=== PATIENT | male | born 1990 | race Hispanic/Latino ===

== ENCOUNTER 2017-09-06 13:59 | Emergency (ER) | payer MEDICARE, MEDICAID | END 2017-09-06 18:07 | disposition left against medical advice (07) | LOC: ERS 13:59 | DX: Z53.21 Procedure and treatment not carried out due to patient leaving prior to being seen by health care provider (principal) ==

== ENCOUNTER 2021-06-09 07:59 | Inpatient (IN) | payer MEDICARE, MEDICAID ==
[2021-06-09] MEDS ORDERED: Lorazepam 2 MG/ML VIAL ONE ×2 (09:22→12:57)
[2021-06-09] MEDS ORDERED: Ondansetron PF 4 MG/2 ML Vial ONE (09:22)
[2021-06-09 10:02] LABS: Hemoglobin 13.2 g/dL (14.0-18.0); Mean Corpuscular HGB CONC 34.3 g/dL (32.0-36.0); Mean Corpuscular Hemoglobin 38.3 pg (27.0-31.0); Mean Platelet Volume 6.3 fL (7.4-10.4); Platelet Count 167 thou/uL (130-400); Red Blood Cell (RBC) Count 3.44 mill/uL (4.70-6.10); White Blood Cell (WBC) Count 13.5 thou/uL (4.8-10.8)
[2021-06-09 10:13] LABS: Acetaminophen Less than 6.0 mcg/mL (10.0-30.0); Alcohol 159 mg/dL (Less than 10); Salicylate Less than 8.0 mg/dL (15.0-30.0)
[2021-06-09 10:15] LABS: ALT (SGPT) 52 U/L (8-55); AST (SGOT) 173 U/L (5-34); Albumin 2.3 g/dL (3.5-5.0); Alkaline Phosphatase 210 U/L (40-110); Anion Gap 14 mmol/L (10-20); BUN (Urea Nitrogen) 4 mg/dL (8.9-20.6); Bilirubin, Total 5.1 mg/dL (0.2-1.2); Calc. Creatinine Clearance 0 mL/min (70-130); Calcium 7.9 mg/dL (7.8-10.44); Carbon Dioxide 31 mmol/L (22-29); Chloride 89 mmol/L (98-107); Glucose 108 mg/dL (70-105); Lipase 19 U/L (8-78); Protein, Total 7.3 g/dL (6.0-8.3); Sodium 131 mmol/L (136-145)
[2021-06-09 10:16] LABS: #Lymphocytes 2.5 thou/uL (1.20-3.40); %Basophils 0.2 % (0.0-1.0); %Eosinophils 0.3 % (0.0-10.0); %Lymphocytes 18.4 % (21.0-51.0); %Monocytes 7.6 % (0.0-10.0); %Neutrophils 73.5 % (42.0-75.0); MDiff Complete? YES; Macrocytosis SLIGHT = 6-15 cells (100X) (0-5/hpf)
[2021-06-09 10:26] LABS: Potassium 2.5 mmol/L (3.5-5.1)
[2021-06-09] MEDS ORDERED: Potassium Chloride 20 MEQ TAB ONE ×2 (10:32→15:04)
[2021-06-09] MEDS ORDERED: Vancomycin 1 GM/200 ML BAG ONE (10:55)
[2021-06-09] MEDS ORDERED: Cefepime 2 GM VIAL ONE (10:55)
[2021-06-09] MEDS ORDERED: Ondansetron ODT 4 MG TAB PO PRN (14:03)
[2021-06-09] MEDS ORDERED: Ondansetron PF 4 MG/2 ML Vial IVP PRN (14:03)
[2021-06-09] MEDS ORDERED: Enoxaparin Sodium 40 MG/0.4 ML SYRINGE SC SCH (14:15)
[2021-06-09] MEDS ORDERED: Furosemide 40 MG/4 ML VIAL SLOW IVP SCH (14:30)
[2021-06-09] MEDS ORDERED: Potassium Chloride 20 MEQ TAB PO SCH (14:30)
[2021-06-09 14:50] LABS: INR-International Normal Ratio 1.5; PTT 34.5 sec (22.9-36.1); Prothrombin Time 18.3 sec (12.0-14.7)
[2021-06-09] MEDS ORDERED: Furosemide 40 MG/4 ML VIAL ONE (15:04)
[2021-06-09] MEDS ORDERED: chlordiazePOXIDE HCl 25 MG CAP PO SCH ×3 (16:15→19:34)
[2021-06-09] MEDS ORDERED: cefTRIAXone\\ROCEPHIN 2 GM VIAL ONE (16:40)
[2021-06-09] MEDS: cefTRIAXone\\ROCEPHIN 2 GM in Sodium Chloride 0.9% 100 ML IVPB SCH (16:41)
[2021-06-09 17:49] LABS: Anion Gap 14 mmol/L (10-20); BUN (Urea Nitrogen) 4 mg/dL (8.9-20.6); Calc. Creatinine Clearance 0 mL/min (70-130); Calcium 7.7 mg/dL (7.8-10.44); Carbon Dioxide 31 mmol/L (22-29); Chloride 92 mmol/L (98-107); Glucose 120 mg/dL (70-105); Sodium 134 mmol/L (136-145)
[2021-06-09 17:55] LABS: Potassium 2.6 mmol/L (3.5-5.1)
[2021-06-09] MEDS ORDERED: Potassium Chloride 20 MEQ in Premix Bag 1 BAG IVPB SCH (18:30)
[2021-06-09 19:56] LABS: Magnesium 1.9 mg/dL (1.6-2.6)
[2021-06-09] MEDS: Potassium Chloride 20 MEQ in Premix Bag 1 BAG IVPB SCH (20:31)
[2021-06-09] MEDS: Acetaminophen 325 MG TAB PO PRN (20:42)
[2021-06-09] MEDS ORDERED: diphenhydrAMINE 50 MG/ML VIAL IVP SCH (21:23)
[2021-06-09] MEDS ORDERED: Lorazepam 2 MG/ML VIAL SLOW IVP SCH (21:58)
[2021-06-09] MEDS: VANCOMYCIN 2 GRAM/400 ML BAG 2 GM in Premix Bag 1 BAG IVPB SCH (22:09)
[2021-06-10] MEDS: Potassium Chloride 20 MEQ in Premix Bag 1 BAG IVPB SCH (00:18)
[2021-06-10] MEDS: chlordiazePOXIDE HCl 25 MG CAP PO SCH ×2 (00:18→05:33)
[2021-06-10] MEDS: VANCOMYCIN 2 GRAM/400 ML BAG 2 GM in Premix Bag 1 BAG IVPB SCH ×3 (05:20→21:10)
[2021-06-10 05:29] LABS: #Eosinphils 0.1 thou/uL (0.0-0.7); #Lymphocytes 2.3 thou/uL (1.20-3.40); #Monocytes 1.1 thou/uL (0.11-0.59); #Neutrophils 8.8 thou/uL (1.40-6.50); %Basophils 0.3 % (0.0-1.0); %Eosinophils 1.1 % (0.0-10.0); %Lymphocytes 18.7 % (21.0-51.0); %Monocytes 8.7 % (0.0-10.0); %Neutrophils 71.1 % (42.0-75.0); Hemoglobin 12.4 g/dL (14.0-18.0); Mean Corpuscular HGB CONC 33.4 g/dL (32.0-36.0); Mean Corpuscular Hemoglobin 38.1 pg (27.0-31.0); Mean Platelet Volume 6.1 fL (7.4-10.4); Platelet Count 138 thou/uL (130-400); RBC Distribution Width 13.1 % (11.5-14.5); Red Blood Cell (RBC) Count 3.27 mill/uL (4.70-6.10); White Blood Cell (WBC) Count 12.4 thou/uL (4.8-10.8)
[2021-06-10 05:55] LABS: ALT (SGPT) 49 U/L (8-55); AST (SGOT) 153 U/L (5-34); Alkaline Phosphatase 193 U/L (40-110); Anion Gap 10 mmol/L (10-20); BUN (Urea Nitrogen) 4 mg/dL (8.9-20.6); Bilirubin, Total 5.1 mg/dL (0.2-1.2); Calc. Creatinine Clearance 371 mL/min (70-130); Calcium 7.8 mg/dL (7.8-10.44); Carbon Dioxide 33 mmol/L (22-29); Cardiac Risk 5.7 (Less than 4.5); Chloride 94 mmol/L (98-107); Cholesterol 114 mg/dl (< 200 Desired); Globulin 4.7 g/dL (2.4-3.5); Glucose 90 mg/dL (70-105); HDL Cholesterol 20 mg/dL (>60 Neg Risk); LDL Cholesterol, Calculated 75 mg/dL; Protein, Total 6.7 g/dL (6.0-8.3); Sodium 134 mmol/L (136-145); Triglycerides 96 mg/dL (Less than 150)
[2021-06-10 06:02] LABS: Potassium 2.9 mmol/L (3.5-5.1)
[2021-06-10 06:13] LABS: HBCM Index 0.19 S/CO (0-0.79); HBSAg Index 0.25 S/CO (0-0.99); Hep A IgM AB Non-Reactive (NonReactive); Hep B Surf Ag Non-Reactive S/CO (NonReactive); Hep C IgG Ab Non-Reactive (NonReactive); Hepatitis B Core IgM Abs Non-Reactive (NonReactive)
[2021-06-10 08:12] LABS: SARS-CoV-2 PCR by NAA Not Detected (NotDetected)
[2021-06-10] MEDS: Thiamine 100 MG TAB PO SCH (09:32)
[2021-06-10] MEDS: Folic Acid 1 MG TAB PO SCH (09:32)
[2021-06-10] MEDS: Enoxaparin Sodium 40 MG/0.4 ML SYRINGE SC SCH (09:33)
[2021-06-10] MEDS ORDERED: Lorazepam 2 MG/ML VIAL SLOW IVP SCH (10:50)
[2021-06-10] MEDS ORDERED: Furosemide 40 MG/4 ML VIAL SLOW IVP SCH (11:15)
[2021-06-10] MEDS ORDERED: Potassium Chloride 20 MEQ in Premix Bag 1 BAG IVPB SCH (11:15)
[2021-06-10] MEDS ORDERED: Potassium Chloride 20 MEQ TAB PO SCH ×2 (11:15→17:00)
[2021-06-10 13:27] LABS: HBSAB Concentration Less than 8.00 mIU/mL; Hep B Surf AB Non-Reactive (NonReactive)
[2021-06-10] MEDS: cefTRIAXone\\ROCEPHIN 2 GM in Sodium Chloride 0.9% 100 ML IVPB SCH (14:58)
[2021-06-10] MEDS: hydrOXYzine 25 MG/ML VIAL IM PRN (17:28)
[2021-06-10 19:20] LABS: Vancomycin, Trough 26.6 ug/mL
[2021-06-10] MEDS: VANCOMYCIN 1.75 GM/350 ML BAG 1.75 GM in Premix Bag 1 BAG IVPB SCH (21:50)
[2021-06-11 04:49] LABS: #Basophils 0.1 thou/uL (0.0-0.2); #Eosinphils 0.2 thou/uL (0.0-0.7); #Monocytes 1.2 thou/uL (0.11-0.59); #Neutrophils 8.7 thou/uL (1.40-6.50); %Basophils 0.4 % (0.0-1.0); %Lymphocytes 16.2 % (21.0-51.0); %Monocytes 9.5 % (0.0-10.0); %Neutrophils 71.8 % (42.0-75.0); Hemoglobin 11.8 g/dL (14.0-18.0); Mean Corpuscular HGB CONC 32.1 g/dL (32.0-36.0); Mean Corpuscular Hemoglobin 37.2 pg (27.0-31.0); Mean Platelet Volume 6.5 fL (7.4-10.4); Platelet Count 124 thou/uL (130-400); RBC Distribution Width 13.3 % (11.5-14.5); Red Blood Cell (RBC) Count 3.17 mill/uL (4.70-6.10); White Blood Cell (WBC) Count 12.1 thou/uL (4.8-10.8)
[2021-06-11 05:18] LABS: ALT (SGPT) 42 U/L (8-55); AST (SGOT) 128 U/L (5-34); Alkaline Phosphatase 198 U/L (40-110); Anion Gap 6 mmol/L (10-20); BUN (Urea Nitrogen) 5 mg/dL (8.9-20.6); Bilirubin, Total 4.9 mg/dL (0.2-1.2); Calc. Creatinine Clearance 333 mL/min (70-130); Calcium 7.6 mg/dL (7.8-10.44); Carbon Dioxide 37 mmol/L (22-29); Chloride 95 mmol/L (98-107); Globulin 4.2 g/dL (2.4-3.5); Glucose 90 mg/dL (70-105); Potassium 3.1 mmol/L (3.5-5.1); Protein, Total 6.2 g/dL (6.0-8.3); Sodium 135 mmol/L (136-145)
[2021-06-11] MEDS: VANCOMYCIN 1.75 GM/350 ML BAG 1.75 GM in Premix Bag 1 BAG IVPB SCH ×3 (05:27→22:43)
[2021-06-11] MEDS: Enoxaparin Sodium 40 MG/0.4 ML SYRINGE SC SCH ×2 (09:32→20:30)
[2021-06-11] MEDS: Thiamine 100 MG TAB PO SCH (09:33)
[2021-06-11] MEDS: Folic Acid 1 MG TAB PO SCH (09:33)
[2021-06-11] MEDS ORDERED: Furosemide 40 MG/4 ML VIAL SLOW IVP SCH ×2 (11:00→17:00)
[2021-06-11] MEDS ORDERED: Polyethylene Glycol 3350 17 GM Packet PO SCH (11:15)
[2021-06-11] MEDS ORDERED: Albumin 25% 25 GM/100 ML BOT IVPB SCH (11:15)
[2021-06-11 11:16] LABS: Band 5 % (5-11); Eosinophils 1 % (0-10); Lymphocytes 15 % (21-51); Monocytes 11 % (0-10); Neutrophil 68 % (42-75); Platelet Morphology Comment Appears Decreased; Polychromasia SLIGHT = 2-3 cells (100X) (0-2/hpf)
[2021-06-11] MEDS: Potassium Chloride 20 MEQ TAB PO SCH ×2 (11:55→16:08)
[2021-06-11] MEDS: Acetaminophen 325 MG TAB PO PRN (16:07)
[2021-06-11] MEDS: cefTRIAXone\\ROCEPHIN 2 GM in Sodium Chloride 0.9% 100 ML IVPB SCH (16:08)
[2021-06-11] MEDS: hydrOXYzine 25 MG/ML VIAL IM PRN ×2 (16:15→22:42)
[2021-06-11] MEDS: Senokot S 8.6-50 MG TAB PO SCH (20:30)
[2021-06-11] MEDS ORDERED: chlordiazePOXIDE HCl 25 MG CAP PO SCH (21:00)
[2021-06-11] MEDS ORDERED: Enoxaparin Sodium 60 MG/0.6 ML SYRINGE SC SCH (21:00)
[2021-06-11] MEDS: VANCOMYCIN 1.25 GM/250 ML BAG 1.25 GM in Premix Bag 1 BAG IVPB SCH (21:28)
[2021-06-11] MEDS ORDERED: diphenhydrAMINE 50 MG/ML VIAL IVP SCH (21:45)
[2021-06-12] MEDS: Acetaminophen 325 MG TAB PO PRN (01:59)
[2021-06-12] MEDS ORDERED: Lorazepam 2 MG/ML VIAL SLOW IVP SCH (03:15)
[2021-06-12 05:01] LABS: #Eosinphils 0.2 thou/uL (0.0-0.7); #Lymphocytes 2.1 thou/uL (1.20-3.40); #Neutrophils 8.5 thou/uL (1.40-6.50); %Basophils 0.2 % (0.0-1.0); %Eosinophils 2.1 % (0.0-10.0); %Lymphocytes 17.5 % (21.0-51.0); %Monocytes 8.3 % (0.0-10.0); %Neutrophils 71.9 % (42.0-75.0); Hemoglobin 11.8 g/dL (14.0-18.0); Mean Corpuscular HGB CONC 33.3 g/dL (32.0-36.0); Mean Corpuscular Hemoglobin 38.7 pg (27.0-31.0); Mean Platelet Volume 6.6 fL (7.4-10.4); Platelet Count 119 thou/uL (130-400); RBC Distribution Width 13.7 % (11.5-14.5); Red Blood Cell (RBC) Count 3.06 mill/uL (4.70-6.10); White Blood Cell (WBC) Count 11.9 thou/uL (4.8-10.8)
[2021-06-12 05:14] LABS: ALT (SGPT) 39 U/L (8-55); AST (SGOT) 108 U/L (5-34); Albumin 2.1 g/dL (3.5-5.0); Alkaline Phosphatase 206 U/L (40-110); Anion Gap 11 mmol/L (10-20); BUN (Urea Nitrogen) 5 mg/dL (8.9-20.6); Calc. Creatinine Clearance 346 mL/min (70-130); Calcium 7.8 mg/dL (7.8-10.44); Carbon Dioxide 34 mmol/L (22-29); Chloride 96 mmol/L (98-107); Globulin 4.4 g/dL (2.4-3.5); Glucose 97 mg/dL (70-105); Protein, Total 6.5 g/dL (6.0-8.3); Sodium 138 mmol/L (136-145)
[2021-06-12] MEDS: VANCOMYCIN 1.25 GM/250 ML BAG 1.25 GM in Premix Bag 1 BAG IVPB SCH ×3 (05:55→23:07)
[2021-06-12] MEDS: Enoxaparin Sodium 40 MG/0.4 ML SYRINGE SC SCH (08:40)
[2021-06-12] MEDS: Polyethylene Glycol 3350 17 GM Packet PO SCH (08:40)
[2021-06-12] MEDS: Senokot S 8.6-50 MG TAB PO SCH ×2 (08:40→20:52)
[2021-06-12] MEDS: Folic Acid 1 MG TAB PO SCH (08:41)
[2021-06-12] MEDS: Thiamine 100 MG TAB PO SCH (08:42)
[2021-06-12] MEDS ORDERED: Potassium Chloride 20 MEQ in Premix Bag 1 BAG IVPB SCH (16:00)
[2021-06-12] MEDS: cefTRIAXone\\ROCEPHIN 2 GM in Sodium Chloride 0.9% 100 ML IVPB SCH (16:48)
[2021-06-12] MEDS: hydrOXYzine 25 MG TAB PO PRN ×2 (17:14→23:08)
[2021-06-12] MEDS: Potassium Chloride 20 MEQ in Premix Bag 1 BAG IVPB SCH ×2 (17:35→19:31)
[2021-06-12] MEDS ORDERED: diphenhydrAMINE 50 MG/ML VIAL IVP SCH (20:00)
[2021-06-12] MEDS: Gabapentin 100 MG CAP PO SCH (20:51)
[2021-06-12] MEDS: Enoxaparin Sodium 60 MG/0.6 ML SYRINGE SC SCH (20:52)
[2021-06-12] MEDS: Potassium Chloride 20 MEQ TAB PO SCH (20:52)
[2021-06-12] MEDS ORDERED: Potassium Chloride 20 MEQ TAB PO SCH (21:00)
[2021-06-12 22:09] LABS: Vancomycin, Trough 21.7 ug/mL
[2021-06-12] MEDS: Nicotine 14 MG PATCH TD SCH (23:07)
[2021-06-13] MEDS ORDERED: diphenhydrAMINE 50 MG/ML VIAL IVP SCH (04:30)
[2021-06-13 04:55] LABS: #Basophils 0.1 thou/uL (0.0-0.2); #Eosinphils 0.3 thou/uL (0.0-0.7); #Lymphocytes 2.1 thou/uL (1.20-3.40); #Monocytes 0.9 thou/uL (0.11-0.59); #Neutrophils 8.2 thou/uL (1.40-6.50); %Basophils 0.5 % (0.0-1.0); %Eosinophils 2.2 % (0.0-10.0); %Lymphocytes 18.6 % (21.0-51.0); %Monocytes 7.4 % (0.0-10.0); %Neutrophils 71.3 % (42.0-75.0); Hemoglobin 12.3 g/dL (14.0-18.0); Mean Corpuscular HGB CONC 32.2 g/dL (32.0-36.0); Mean Corpuscular Hemoglobin 37.6 pg (27.0-31.0); Mean Platelet Volume 6.5 fL (7.4-10.4); Platelet Count 127 thou/uL (130-400); RBC Distribution Width 14.3 % (11.5-14.5); Red Blood Cell (RBC) Count 3.26 mill/uL (4.70-6.10); White Blood Cell (WBC) Count 11.5 thou/uL (4.8-10.8)
[2021-06-13 05:17] LABS: ALT (SGPT) 34 U/L (8-55); AST (SGOT) 96 U/L (5-34); Albumin 2.2 g/dL (3.5-5.0); Alkaline Phosphatase 208 U/L (40-110); Anion Gap 10 mmol/L (10-20); BUN (Urea Nitrogen) 6 mg/dL (8.9-20.6); Bilirubin, Total 4.9 mg/dL (0.2-1.2); Calc. Creatinine Clearance 342 mL/min (70-130); Calcium 7.5 mg/dL (7.8-10.44); Carbon Dioxide 32 mmol/L (22-29); Chloride 95 mmol/L (98-107); Globulin 4.4 g/dL (2.4-3.5); Glucose 94 mg/dL (70-105); Potassium 3.1 mmol/L (3.5-5.1); Protein, Total 6.6 g/dL (6.0-8.3); Sodium 134 mmol/L (136-145)
[2021-06-13] MEDS: VANCOMYCIN 1.25 GM/250 ML BAG 1.25 GM in Premix Bag 1 BAG IVPB SCH ×3 (05:42→23:27)
[2021-06-13] MEDS ORDERED: Nicotine 21 MG PATCH TD SCH (06:30)
[2021-06-13] MEDS: hydrOXYzine 25 MG TAB PO PRN ×2 (07:35→16:50)
[2021-06-13 08:27] LABS: Magnesium 1.8 mg/dL (1.6-2.6)
[2021-06-13] MEDS: Acetaminophen 325 MG TAB PO PRN (08:29)
[2021-06-13] MEDS: Enoxaparin Sodium 60 MG/0.6 ML SYRINGE SC SCH ×2 (08:29→21:29)
[2021-06-13] MEDS: Potassium Chloride 20 MEQ TAB PO SCH ×2 (08:29→21:40)
[2021-06-13] MEDS: Polyethylene Glycol 3350 17 GM Packet PO SCH (08:29)
[2021-06-13] MEDS: Senokot S 8.6-50 MG TAB PO SCH ×2 (08:30→21:34)
[2021-06-13] MEDS: busPIRone HCl 10 MG TAB PO SCH ×2 (08:30→21:28)
[2021-06-13] MEDS: Torsemide 20 MG TAB PO SCH (08:30)
[2021-06-13] MEDS: Folic Acid 1 MG TAB PO SCH (08:30)
[2021-06-13] MEDS: Thiamine 100 MG TAB PO SCH (08:30)
[2021-06-13] MEDS ORDERED: Ibuprofen 600 MG TAB PO PRN (08:47)
[2021-06-13] MEDS ORDERED: chlordiazePOXIDE HCl 25 MG CAP PO SCH (09:00)
[2021-06-13] MEDS ORDERED: Magnesium 2 GM/50 ML 2 GM in Premix Bag 1 BAG IVPB SCH (09:30)
[2021-06-13] MEDS: cefTRIAXone\\ROCEPHIN 2 GM in Sodium Chloride 0.9% 100 ML IVPB SCH (17:55)
[2021-06-13] MEDS: Gabapentin 100 MG CAP PO SCH (21:29)
[2021-06-13 21:30] LABS: Vancomycin, Trough 25.9 ug/mL
[2021-06-13] MEDS: Calamine/Zinc Oxide 177 ML LOTION TP SCH (21:30)
[2021-06-13] MEDS: Docusate Sodium 10 MG/1 ML Oral Suspension PO SCH (21:32)
[2021-06-13] MEDS: Nicotine 14 MG PATCH TD SCH (23:59)
[2021-06-14] MEDS: hydrOXYzine 25 MG TAB PO PRN ×2 (03:48→23:45)
[2021-06-14] MEDS ORDERED: diphenhydrAMINE 50 MG/ML VIAL IVP SCH (04:48)
[2021-06-14] MEDS: Polyethylene Glycol 3350 17 GM Packet PO SCH (10:11)
[2021-06-14] MEDS: busPIRone HCl 10 MG TAB PO SCH ×2 (10:12→20:42)
[2021-06-14] MEDS: Potassium Chloride 20 MEQ TAB PO SCH ×2 (10:12→23:43)
[2021-06-14] MEDS: Metolazone 5 MG TAB PO SCH (10:12)
[2021-06-14] MEDS: Thiamine 100 MG TAB PO SCH (10:12)
[2021-06-14] MEDS: Folic Acid 1 MG TAB PO SCH (10:12)
[2021-06-14] MEDS: Senokot S 8.6-50 MG TAB PO SCH ×2 (10:13→20:42)
[2021-06-14] MEDS: Torsemide 20 MG TAB PO SCH (10:13)
[2021-06-14] MEDS: Calamine/Zinc Oxide 177 ML LOTION TP SCH ×2 (10:14→20:43)
[2021-06-14] MEDS: Docusate Sodium 10 MG/1 ML Oral Suspension PO SCH ×2 (10:14→20:44)
[2021-06-14] MEDS: Enoxaparin Sodium 60 MG/0.6 ML SYRINGE SC SCH ×2 (10:59→20:43)
[2021-06-14] MEDS: Vancomycin 1 GM in Premix Bag 1 BAG IVPB SCH ×2 (10:59)
[2021-06-14] MEDS: Cephalexin 250 MG/5 ML Oral Suspension PO SCH ×4 (11:28→23:43)
[2021-06-14 15:27] LABS: #Eosinphils 0.2 thou/uL (0.0-0.7); #Lymphocytes 1.4 thou/uL (1.20-3.40); #Monocytes 1.4 thou/uL (0.11-0.59); #Neutrophils 11.3 thou/uL (1.40-6.50); %Eosinophils 1.6 % (0.0-10.0); %Lymphocytes 9.5 % (21.0-51.0); %Monocytes 9.8 % (0.0-10.0); %Neutrophils 79.2 % (42.0-75.0); Hemoglobin 12.7 g/dL (14.0-18.0); Mean Corpuscular HGB CONC 32.1 g/dL (32.0-36.0); Mean Platelet Volume 6.8 fL (7.4-10.4); Platelet Count 103 thou/uL (130-400); RBC Distribution Width 14.7 % (11.5-14.5); Red Blood Cell (RBC) Count 3.34 mill/uL (4.70-6.10); White Blood Cell (WBC) Count 14.2 thou/uL (4.8-10.8)
[2021-06-14 15:41] LABS: Magnesium 1.8 mg/dL (1.6-2.6)
[2021-06-14 15:44] LABS: ALT (SGPT) 30 U/L (8-55); AST (SGOT) 91 U/L (5-34); Albumin 1.9 g/dL (3.5-5.0); Alkaline Phosphatase 182 U/L (40-110); Anion Gap 12 mmol/L (10-20); BUN (Urea Nitrogen) 10 mg/dL (8.9-20.6); Bilirubin, Total 5.4 mg/dL (0.2-1.2); Calc. Creatinine Clearance 232 mL/min (70-130); Calcium 7.4 mg/dL (7.8-10.44); Carbon Dioxide 28 mmol/L (22-29); Chloride 98 mmol/L (98-107); Globulin 4.3 g/dL (2.4-3.5); Glucose 110 mg/dL (70-105); Potassium 3.1 mmol/L (3.5-5.1); Protein, Total 6.2 g/dL (6.0-8.3); Sodium 135 mmol/L (136-145)
[2021-06-14] MEDS: Acetaminophen 325 MG TAB PO PRN (20:41)
[2021-06-14] MEDS: Gabapentin 100 MG CAP PO SCH (20:42)
[2021-06-14] MEDS ORDERED: Simethicone Chewable 80 MG TAB PO PRN (22:39)
[2021-06-14] MEDS: Nicotine 14 MG PATCH TD SCH (23:45)
[2021-06-15] MEDS ORDERED: diphenhydrAMINE 50 MG/ML VIAL IVP SCH (00:30)
[2021-06-15] MEDS: Cephalexin 250 MG/5 ML Oral Suspension PO SCH ×4 (03:49→22:19)
[2021-06-15 05:07] LABS: #Eosinphils 0.3 thou/uL (0.0-0.7); #Lymphocytes 2.2 thou/uL (1.20-3.40); #Monocytes 1.3 thou/uL (0.11-0.59); #Neutrophils 8.3 thou/uL (1.40-6.50); %Basophils 0.2 % (0.0-1.0); %Eosinophils 2.8 % (0.0-10.0); %Lymphocytes 17.8 % (21.0-51.0); %Monocytes 10.7 % (0.0-10.0); %Neutrophils 68.5 % (42.0-75.0); Hemoglobin 11.9 g/dL (14.0-18.0); Mean Corpuscular Hemoglobin 37.9 pg (27.0-31.0); Mean Platelet Volume 6.5 fL (7.4-10.4); Platelet Count 117 thou/uL (130-400); RBC Distribution Width 14.4 % (11.5-14.5); Red Blood Cell (RBC) Count 3.16 mill/uL (4.70-6.10); White Blood Cell (WBC) Count 12.2 thou/uL (4.8-10.8)
[2021-06-15 05:11] LABS: ALT (SGPT) 31 U/L (8-55); AST (SGOT) 84 U/L (5-34); Alkaline Phosphatase 170 U/L (40-110); Anion Gap 11 mmol/L (10-20); BUN (Urea Nitrogen) 12 mg/dL (8.9-20.6); Bilirubin, Total 5.4 mg/dL (0.2-1.2); Calc. Creatinine Clearance 183 mL/min (70-130); Calcium 7.8 mg/dL (7.8-10.44); Carbon Dioxide 34 mmol/L (22-29); Chloride 95 mmol/L (98-107); Globulin 4.3 g/dL (2.4-3.5); Glucose 97 mg/dL (70-105); Protein, Total 6.3 g/dL (6.0-8.3); Sodium 137 mmol/L (136-145)
[2021-06-15 05:16] LABS: Potassium 2.8 mmol/L (3.5-5.1)
[2021-06-15] MEDS ORDERED: Potassium Chloride 40 MEQ in Premix Bag 1 BAG IVPB SCH (05:30)
[2021-06-15] MEDS: hydrOXYzine 25 MG TAB PO PRN ×2 (09:00→22:19)
[2021-06-15] MEDS: Potassium Chloride 20 MEQ TAB PO SCH ×2 (09:03→18:21)
[2021-06-15] MEDS: Senokot S 8.6-50 MG TAB PO SCH ×2 (09:03→20:46)
[2021-06-15] MEDS: Metolazone 5 MG TAB PO SCH (09:03)
[2021-06-15] MEDS: busPIRone HCl 10 MG TAB PO SCH ×2 (09:03→20:41)
[2021-06-15] MEDS: Folic Acid 1 MG TAB PO SCH (09:04)
[2021-06-15] MEDS: Torsemide 20 MG TAB PO SCH (09:04)
[2021-06-15] MEDS: Thiamine 100 MG TAB PO SCH (09:04)
[2021-06-15] MEDS: Docusate Sodium 10 MG/1 ML Oral Suspension PO SCH ×2 (09:05→20:47)
[2021-06-15] MEDS: Calamine/Zinc Oxide 177 ML LOTION TP SCH ×2 (09:05→20:48)
[2021-06-15] MEDS: Polyethylene Glycol 3350 17 GM Packet PO SCH (09:05)
[2021-06-15] MEDS: Enoxaparin Sodium 60 MG/0.6 ML SYRINGE SC SCH ×2 (09:08→20:39)
[2021-06-15] MEDS: Potassium Chloride 40 MEQ in Sodium Chloride 0.9% 250 ML 250 ML IVPB SCH ×2 (10:42→11:28)
[2021-06-15 12:33] LABS: Potassium 2.8 mmol/L (3.5-5.1)
[2021-06-15] MEDS ORDERED: Potassium Chloride 20 MEQ TAB PO SCH ×2 (12:45→17:00)
[2021-06-15] MEDS: Simethicone Chewable 80 MG TAB PO SCH ×3 (14:13→21:37)
[2021-06-15 19:24] LABS: Bacteria/HPF None Seen HPF (None Seen); Bilirubin Negative (Negative); Blood, Urine Negative (Negative); Clarity Clear (Clear); Glucose, Urine (Dipstick) Normal (Negative); Ketone, Urine Negative (Negative); Leukocyte Negative Leu/uL (Negative); Nitrite Negative (Negative); Protein, Urine (Dipstick) Negative (Neg-Trace); RBC/HPF 0-3 HPF (0-3); Specific Gravity, Urine 1.007 (1.002-1.036); Squamous Epithelial 0-3 HPF (0-3); Urobilinogen Normal mg/dL (Less than 2); WBC/HPF 0-3 HPF (0-3)
[2021-06-15 19:52] LABS: Creatinine, Urine 30.22 mg/dL (63-166)
[2021-06-15] MEDS: Gabapentin 100 MG CAP PO SCH (20:43)
[2021-06-15] MEDS: Nicotine 14 MG PATCH TD SCH (22:18)
[2021-06-16] MEDS: Cephalexin 250 MG/5 ML Oral Suspension PO SCH ×4 (03:52→22:03)
[2021-06-16] MEDS: hydrOXYzine 25 MG TAB PO PRN ×2 (03:53→20:24)
[2021-06-16 06:39] LABS: #Eosinphils 0.3 thou/uL (0.0-0.7); #Lymphocytes 2.1 thou/uL (1.20-3.40); #Monocytes 1.1 thou/uL (0.11-0.59); %Basophils 0.5 % (0.0-1.0); %Eosinophils 3.2 % (0.0-10.0); %Lymphocytes 19.9 % (21.0-51.0); %Monocytes 10.6 % (0.0-10.0); %Neutrophils 65.8 % (42.0-75.0); Hemoglobin 12.4 g/dL (14.0-18.0); Mean Corpuscular HGB CONC 31.5 g/dL (32.0-36.0); Mean Corpuscular Hemoglobin 37.1 pg (27.0-31.0); Mean Platelet Volume 6.7 fL (7.4-10.4); Platelet Count 122 thou/uL (130-400); Red Blood Cell (RBC) Count 3.35 mill/uL (4.70-6.10); White Blood Cell (WBC) Count 10.7 thou/uL (4.8-10.8)
[2021-06-16 06:46] LABS: ALT (SGPT) 27 U/L (8-55); AST (SGOT) 78 U/L (5-34); Albumin 2.1 g/dL (3.5-5.0); Alkaline Phosphatase 174 U/L (40-110); Anion Gap 12 mmol/L (10-20); BUN (Urea Nitrogen) 16 mg/dL (8.9-20.6); Bilirubin, Total 6.1 mg/dL (0.2-1.2); Calc. Creatinine Clearance 137 mL/min (70-130); Calcium 7.8 mg/dL (7.8-10.44); Carbon Dioxide 33 mmol/L (22-29); Chloride 95 mmol/L (98-107); Globulin 4.5 g/dL (2.4-3.5); Glucose 106 mg/dL (70-105); Potassium 3.3 mmol/L (3.5-5.1); Protein, Total 6.6 g/dL (6.0-8.3); Sodium 137 mmol/L (136-145)
[2021-06-16] MEDS: busPIRone HCl 10 MG TAB PO SCH ×2 (09:09→20:23)
[2021-06-16] MEDS: Simethicone Chewable 80 MG TAB PO SCH ×4 (09:10→22:03)
[2021-06-16] MEDS: Thiamine 100 MG TAB PO SCH (09:10)
[2021-06-16] MEDS: Folic Acid 1 MG TAB PO SCH (09:10)
[2021-06-16] MEDS: Potassium Chloride 20 MEQ TAB PO SCH (09:11)
[2021-06-16] MEDS: Enoxaparin Sodium 60 MG/0.6 ML SYRINGE SC SCH ×2 (09:11→20:27)
[2021-06-16] MEDS: Calamine/Zinc Oxide 177 ML LOTION TP SCH ×2 (09:12→20:24)
[2021-06-16] MEDS: Polyethylene Glycol 3350 17 GM Packet PO SCH (09:12)
[2021-06-16] MEDS: Senokot S 8.6-50 MG TAB PO SCH ×2 (09:13→20:28)
[2021-06-16] MEDS: Docusate Sodium 10 MG/1 ML Oral Suspension PO SCH ×2 (09:13→20:27)
[2021-06-16] MEDS: Gabapentin 100 MG CAP PO SCH (20:26)
[2021-06-16] MEDS: Nicotine 14 MG PATCH TD SCH (22:03)
[2021-06-16] MEDS: Melatonin 3 MG TAB PO SCH (22:03)
[2021-06-17] MEDS: Cephalexin 250 MG/5 ML Oral Suspension PO SCH ×4 (03:47→22:25)
[2021-06-17] MEDS: Simethicone Chewable 80 MG TAB PO SCH ×4 (10:14→20:50)
[2021-06-17] MEDS: Folic Acid 1 MG TAB PO SCH (10:14)
[2021-06-17] MEDS ORDERED: Spironolactone 100 MG TAB PO SCH (10:15)
[2021-06-17] MEDS: Senokot S 8.6-50 MG TAB PO SCH ×2 (10:15→21:27)
[2021-06-17] MEDS ORDERED: Furosemide 40 MG TAB PO SCH (10:15)
[2021-06-17] MEDS: Thiamine 100 MG TAB PO SCH (10:17)
[2021-06-17] MEDS: busPIRone HCl 10 MG TAB PO SCH ×2 (10:17→20:50)
[2021-06-17] MEDS: Enoxaparin Sodium 60 MG/0.6 ML SYRINGE SC SCH ×2 (10:18→20:48)
[2021-06-17] MEDS: Calamine/Zinc Oxide 177 ML LOTION TP SCH ×2 (10:18→22:25)
[2021-06-17] MEDS: Polyethylene Glycol 3350 17 GM Packet PO SCH (10:19)
[2021-06-17] MEDS: Docusate Sodium 100 MG/10 ML UDCUP PO SCH ×3 (10:25→21:27)
[2021-06-17] MEDS: Furosemide 40 MG TAB PO SCH (10:26)
[2021-06-17] MEDS: Docusate Sodium 10 MG/1 ML Oral Suspension PO SCH (10:48)
[2021-06-17 19:19] LABS: #Eosinphils 0.2 thou/uL (0.0-0.7); #Lymphocytes 1.9 thou/uL (1.20-3.40); #Monocytes 1.5 thou/uL (0.11-0.59); #Neutrophils 11.8 thou/uL (1.40-6.50); %Basophils 0.1 % (0.0-1.0); %Eosinophils 1.6 % (0.0-10.0); %Lymphocytes 12.3 % (21.0-51.0); %Monocytes 9.8 % (0.0-10.0); %Neutrophils 76.2 % (42.0-75.0); Hemoglobin 11.9 g/dL (14.0-18.0); Mean Corpuscular HGB CONC 32.9 g/dL (32.0-36.0); Mean Corpuscular Hemoglobin 37.7 pg (27.0-31.0); Platelet Count 111 thou/uL (130-400); RBC Distribution Width 13.9 % (11.5-14.5); Red Blood Cell (RBC) Count 3.15 mill/uL (4.70-6.10); White Blood Cell (WBC) Count 15.5 thou/uL (4.8-10.8)
[2021-06-17 19:35] LABS: ALT (SGPT) 23 U/L (8-55); AST (SGOT) 100 U/L (5-34); Alkaline Phosphatase 162 U/L (40-110); Anion Gap 17 mmol/L (10-20); BUN (Urea Nitrogen) 23 mg/dL (8.9-20.6); Bilirubin, Total 6.2 mg/dL (0.2-1.2); Calc. Creatinine Clearance 88 mL/min (70-130); Carbon Dioxide 25 mmol/L (22-29); Chloride 97 mmol/L (98-107); Glucose 118 mg/dL (70-105); Potassium 3.9 mmol/L (3.5-5.1); Sodium 135 mmol/L (136-145)
[2021-06-17] MEDS: Nicotine 14 MG PATCH TD SCH (20:50)
[2021-06-17] MEDS: Melatonin 3 MG TAB PO SCH (20:50)
[2021-06-17] MEDS: Gabapentin 100 MG CAP PO SCH (20:51)
[2021-06-17 22:33] LABS: SARS-CoV-2 PCR by NAA Not Detected (NotDetected)
[2021-06-18] MEDS: Cephalexin 250 MG/5 ML Oral Suspension PO SCH (04:06)
[2021-06-18 07:14] LABS: #Basophils 0.1 thou/uL (0.0-0.2); #Eosinphils 0.4 thou/uL (0.0-0.7); #Lymphocytes 2.4 thou/uL (1.20-3.40); #Monocytes 1.2 thou/uL (0.11-0.59); #Neutrophils 7.3 thou/uL (1.40-6.50); %Basophils 0.6 % (0.0-1.0); %Eosinophils 3.6 % (0.0-10.0); %Lymphocytes 20.9 % (21.0-51.0); %Monocytes 10.9 % (0.0-10.0); Hemoglobin 11.4 g/dL (14.0-18.0); Mean Corpuscular HGB CONC 33.6 g/dL (32.0-36.0); Mean Corpuscular Hemoglobin 38.6 pg (27.0-31.0); Mean Platelet Volume 6.8 fL (7.4-10.4); Platelet Count 115 thou/uL (130-400); RBC Distribution Width 13.5 % (11.5-14.5); Red Blood Cell (RBC) Count 2.95 mill/uL (4.70-6.10); White Blood Cell (WBC) Count 11.4 thou/uL (4.8-10.8)
[2021-06-18 07:26] LABS: Anion Gap 11 mmol/L (10-20); BUN (Urea Nitrogen) 23 mg/dL (8.9-20.6); Calc. Creatinine Clearance 97 mL/min (70-130); Carbon Dioxide 32 mmol/L (22-29); Chloride 95 mmol/L (98-107); Sodium 135 mmol/L (136-145)
[2021-06-18 07:27] LABS: ALT (SGPT) 25 U/L (8-55); AST (SGOT) 71 U/L (5-34); Albumin 1.8 g/dL (3.5-5.0); Alkaline Phosphatase 152 U/L (40-110); Bilirubin, Total 5.3 mg/dL (0.2-1.2); Calcium 7.6 mg/dL (7.8-10.44); Globulin 4.2 g/dL (2.4-3.5); Glucose 87 mg/dL (70-105)
[2021-06-18 07:32] LABS: Potassium 2.6 mmol/L (3.5-5.1)
[2021-06-18] MEDS ORDERED: Spironolactone 100 MG TAB PO SCH (08:00)
[2021-06-18] MEDS: Polyethylene Glycol 3350 17 GM Packet PO SCH (08:43)
[2021-06-18] MEDS: Docusate Sodium 100 MG/10 ML UDCUP PO SCH ×3 (08:44→21:25)
[2021-06-18] MEDS: busPIRone HCl 10 MG TAB PO SCH ×2 (08:44→21:22)
[2021-06-18] MEDS: Furosemide 40 MG TAB PO SCH (08:44)
[2021-06-18] MEDS: Senokot S 8.6-50 MG TAB PO SCH ×2 (08:44→21:25)
[2021-06-18] MEDS: Simethicone Chewable 80 MG TAB PO SCH ×4 (08:44→21:21)
[2021-06-18] MEDS: Folic Acid 1 MG TAB PO SCH (08:44)
[2021-06-18] MEDS: Thiamine 100 MG TAB PO SCH (08:44)
[2021-06-18] MEDS: Enoxaparin Sodium 60 MG/0.6 ML SYRINGE SC SCH ×2 (08:45→21:25)
[2021-06-18] MEDS: Calamine/Zinc Oxide 177 ML LOTION TP SCH ×2 (08:45→21:24)
[2021-06-18] MEDS ORDERED: Potassium Chloride 20 MEQ TAB PO SCH (10:30)
[2021-06-18] MEDS ORDERED: Nystatin Powder 15 GM BOT TOP PRN (10:43)
[2021-06-18] MEDS ORDERED: Albumin 25% 25 GM/100 ML BOT IVPB SCH (12:00)
[2021-06-18] MEDS: Potassium Chloride 20 MEQ TAB PO SCH ×2 (12:19→17:20)
[2021-06-18] MEDS: Cephalexin 250 MG CAP PO SCH ×2 (12:20→21:21)
[2021-06-18 12:56] LABS: Magnesium 1.7 mg/dL (1.6-2.6)
[2021-06-18] MEDS ORDERED: Magnesium 2 GM/50 ML 2 GM in Premix Bag 1 BAG IVPB SCH (14:30)
[2021-06-18] MEDS: Albumin 25% 25 GM/100 ML BOT IVPB SCH (17:20)
[2021-06-18] MEDS ORDERED: Labetalol HCl 100 MG/20 ML VIAL ONE ×2 (20:31→21:13)
[2021-06-18] MEDS: hydrOXYzine 25 MG TAB PO PRN (21:21)
[2021-06-18] MEDS: Melatonin 3 MG TAB PO SCH (21:21)
[2021-06-19] MEDS: Albumin 25% 25 GM/100 ML BOT IVPB SCH ×4 (00:07→17:55)
[2021-06-19] MEDS: Nicotine 14 MG PATCH TD SCH ×2 (00:07→17:55)
[2021-06-19] MEDS: Cephalexin 250 MG CAP PO SCH ×3 (05:47→21:45)
[2021-06-19] MEDS ORDERED: Spironolactone 100 MG TAB PO SCH (08:00)
[2021-06-19 08:23] LABS: #Eosinphils 0.3 thou/uL (0.0-0.7); #Lymphocytes 1.9 thou/uL (1.20-3.40); #Monocytes 1.3 thou/uL (0.11-0.59); #Neutrophils 7.5 thou/uL (1.40-6.50); %Basophils 0.1 % (0.0-1.0); %Eosinophils 2.5 % (0.0-10.0); %Neutrophils 68.5 % (42.0-75.0); Hemoglobin 10.3 g/dL (14.0-18.0); Mean Corpuscular HGB CONC 32.3 g/dL (32.0-36.0); Mean Corpuscular Hemoglobin 36.8 pg (27.0-31.0); Mean Platelet Volume 7.1 fL (7.4-10.4); Platelet Count 125 thou/uL (130-400); RBC Distribution Width 13.7 % (11.5-14.5); Red Blood Cell (RBC) Count 2.78 mill/uL (4.70-6.10)
[2021-06-19 08:47] LABS: Anion Gap 11 mmol/L (10-20); BUN (Urea Nitrogen) 28 mg/dL (8.9-20.6); Calc. Creatinine Clearance 85 mL/min (70-130); Carbon Dioxide 30 mmol/L (22-29); Chloride 96 mmol/L (98-107); Sodium 134 mmol/L (136-145)
[2021-06-19 08:48] LABS: ALT (SGPT) 22 U/L (8-55); AST (SGOT) 71 U/L (5-34); Albumin 2.3 g/dL (3.5-5.0); Alkaline Phosphatase 135 U/L (40-110); Bilirubin, Total 5.1 mg/dL (0.2-1.2); Calcium 7.8 mg/dL (7.8-10.44); Globulin 3.8 g/dL (2.4-3.5); Glucose 88 mg/dL (70-105); Protein, Total 6.1 g/dL (6.0-8.3)
[2021-06-19 08:51] LABS: Potassium 2.9 mmol/L (3.5-5.1)
[2021-06-19] MEDS: Thiamine 100 MG TAB PO SCH (09:59)
[2021-06-19] MEDS: busPIRone HCl 10 MG TAB PO SCH ×2 (09:59→21:40)
[2021-06-19] MEDS: Docusate Sodium 100 MG/10 ML UDCUP PO SCH (10:00)
[2021-06-19] MEDS: Potassium Chloride 20 MEQ TAB PO SCH ×3 (10:00→17:56)
[2021-06-19] MEDS: Polyethylene Glycol 3350 17 GM Packet PO SCH (10:00)
[2021-06-19] MEDS ORDERED: Potassium Chloride 20 MEQ TAB PO SCH (10:00)
[2021-06-19] MEDS: Folic Acid 1 MG TAB PO SCH (10:00)
[2021-06-19] MEDS: Simethicone Chewable 80 MG TAB PO SCH ×4 (10:00→21:45)
[2021-06-19] MEDS: Senokot S 8.6-50 MG TAB PO SCH (10:00)
[2021-06-19] MEDS: Magnesium Oxide 400 MG TAB PO SCH (10:00)
[2021-06-19] MEDS: Enoxaparin Sodium 60 MG/0.6 ML SYRINGE SC SCH ×2 (10:01→21:45)
[2021-06-19] MEDS: Acetaminophen 325 MG TAB PO PRN (12:13)
[2021-06-19 14:01] LABS: Creatinine, Urine 149.1 mg/dL (63-166)
[2021-06-19] MEDS: Midodrine HCl 5 MG TAB PO SCH ×3 (18:01→21:45)
[2021-06-19] MEDS: hydrOXYzine 25 MG TAB PO PRN (18:01)
[2021-06-19] MEDS: Octreotide Acetate 50 MCG/ML AMP SC SCH (21:45)
[2021-06-19 21:46] LABS: Anion Gap 12 mmol/L (10-20); BUN (Urea Nitrogen) 28 mg/dL (8.9-20.6); Calc. Creatinine Clearance 76 mL/min (70-130); Calcium 7.9 mg/dL (7.8-10.44); Carbon Dioxide 31 mmol/L (22-29); Chloride 95 mmol/L (98-107); Glucose 97 mg/dL (70-105); Potassium 3.1 mmol/L (3.5-5.1); Sodium 135 mmol/L (136-145)
[2021-06-19] MEDS ORDERED: Octreotide Acetate 100 MCG/ML VIAL SC SCH (22:00)
[2021-06-19 22:57] LABS: ALT (SGPT) 25 U/L (8-55); AST (SGOT) 81 U/L (5-34); Albumin 2.9 g/dL (3.5-5.0); Alkaline Phosphatase 148 U/L (40-110); Anion Gap 14 mmol/L (10-20); BUN (Urea Nitrogen) 30 mg/dL (8.9-20.6); Calc. Creatinine Clearance 75 mL/min (70-130); Calcium 8.2 mg/dL (7.8-10.44); Carbon Dioxide 28 mmol/L (22-29); Chloride 95 mmol/L (98-107); Globulin 4.4 g/dL (2.4-3.5); Glucose 83 mg/dL (70-105); Phosphorus 4.9 mg/dL (2.3-4.7); Potassium 3.4 mmol/L (3.5-5.1); Protein, Total 7.3 g/dL (6.0-8.3); Sodium 134 mmol/L (136-145)
[2021-06-19 23:19] LABS: CKMB 1.9 ng/mL (0-6.6)
[2021-06-19] MEDS ORDERED: Magnesium 2 GM/50 ML 2 GM in Premix Bag 1 BAG IVPB SCH (23:30)
[2021-06-19] MEDS ORDERED: Potassium Chloride 20 MEQ in Premix Bag 1 BAG IVPB SCH (23:30)
[2021-06-19] MEDS ORDERED: MEROPENEM 1 GM/50 ML 1 GM in Premix Bag 1 BAG IVPB SCH (23:59)
[2021-06-20] MEDS: Docusate Sodium 100 MG/10 ML UDCUP PO SCH ×3 (00:03→20:51)
[2021-06-20] MEDS: Melatonin 3 MG TAB PO SCH ×2 (00:04→20:52)
[2021-06-20] MEDS: Acetaminophen 325 MG TAB PO PRN (00:11)
[2021-06-20] MEDS: Senokot S 8.6-50 MG TAB PO SCH ×3 (00:14→20:53)
[2021-06-20] MEDS ORDERED: Cephalexin 250 MG CAP PO SCH (00:30)
[2021-06-20] MEDS ORDERED: busPIRone HCl 5 MG TAB PO SCH (00:30)
[2021-06-20] MEDS ORDERED: Melatonin 3 MG TAB PO SCH (00:30)
[2021-06-20] MEDS ORDERED: hydrOXYzine 25 MG/ML VIAL IM SCH (01:00)
[2021-06-20 01:52] LABS: Troponin I 0.033 ng/mL (< 0.028)
[2021-06-20] MEDS ORDERED: Nicotine 14 MG PATCH TD SCH (04:15)
[2021-06-20 04:28] LABS: #Eosinphils 0.1 thou/uL (0.0-0.7); #Lymphocytes 1.3 thou/uL (1.20-3.40); #Monocytes 0.9 thou/uL (0.11-0.59); #Neutrophils 7.7 thou/uL (1.40-6.50); %Basophils 0.2 % (0.0-1.0); %Eosinophils 1.5 % (0.0-10.0); %Monocytes 8.8 % (0.0-10.0); %Neutrophils 76.5 % (42.0-75.0); Hemoglobin 10.4 g/dL (14.0-18.0); Mean Corpuscular HGB CONC 33.9 g/dL (32.0-36.0); Mean Corpuscular Hemoglobin 39.2 pg (27.0-31.0); Mean Platelet Volume 7.2 fL (7.4-10.4); Platelet Count 114 thou/uL (130-400); RBC Distribution Width 13.7 % (11.5-14.5); Red Blood Cell (RBC) Count 2.66 mill/uL (4.70-6.10)
[2021-06-20 04:40] LABS: INR-International Normal Ratio 1.6; Prothrombin Time 19.5 sec (12.0-14.7)
[2021-06-20 04:41] LABS: PTT 54.1 sec (22.9-36.1)
[2021-06-20 04:47] LABS: ALT (SGPT) 22 U/L (8-55); AST (SGOT) 76 U/L (5-34); Albumin 2.5 g/dL (3.5-5.0); Alkaline Phosphatase 124 U/L (40-110); Anion Gap 13 mmol/L (10-20); BUN (Urea Nitrogen) 30 mg/dL (8.9-20.6); Bilirubin, Total 5.9 mg/dL (0.2-1.2); Calc. Creatinine Clearance 73 mL/min (70-130); Carbon Dioxide 29 mmol/L (22-29); Chloride 96 mmol/L (98-107); Globulin 3.6 g/dL (2.4-3.5); Glucose 94 mg/dL (70-105); Phosphorus 5.3 mg/dL (2.3-4.7); Potassium 3.7 mmol/L (3.5-5.1); Protein, Total 6.1 g/dL (6.0-8.3); Sodium 134 mmol/L (136-145)
[2021-06-20] MEDS: Cephalexin 250 MG CAP PO SCH ×3 (05:08→20:52)
[2021-06-20] MEDS: Octreotide Acetate 50 MCG/ML AMP SC SCH ×4 (05:41→21:50)
[2021-06-20 05:50] LABS: ALT (SGPT) 26 U/L (8-55); AST (SGOT) 84 U/L (5-34); Albumin 2.9 g/dL (3.5-5.0); Alkaline Phosphatase 144 U/L (40-110); Bilirubin, Direct 3.6 mg/dL (0.1-0.3); Bilirubin, Total 5.9 mg/dL (0.2-1.2); Protein, Total 7.4 g/dL (6.0-8.3)
[2021-06-20] MEDS ORDERED: Albumin 25% 25 GM/100 ML BOT IVPB SCH (06:45)
[2021-06-20] MEDS ORDERED: MEROPENEM 1 GM/50 ML 1 GM in Premix Bag 1 BAG IVPB SCH (08:00)
[2021-06-20] MEDS ORDERED: Meropenem 1 GM in Sodium Chloride 0.9% 100 ML IVPB SCH (09:00)
[2021-06-20] MEDS: busPIRone HCl 10 MG TAB PO SCH ×2 (10:02→20:53)
[2021-06-20] MEDS: Enoxaparin Sodium 60 MG/0.6 ML SYRINGE SC SCH ×2 (10:04→20:51)
[2021-06-20] MEDS: Polyethylene Glycol 3350 17 GM Packet PO SCH (10:04)
[2021-06-20] MEDS: Folic Acid 1 MG TAB PO SCH (10:05)
[2021-06-20] MEDS: Magnesium Oxide 400 MG TAB PO SCH (10:05)
[2021-06-20] MEDS: Simethicone Chewable 80 MG TAB PO SCH ×4 (10:05→20:51)
[2021-06-20] MEDS: Thiamine 100 MG TAB PO SCH (10:06)
[2021-06-20] MEDS: Potassium Chloride 20 MEQ TAB PO SCH ×3 (13:14→18:52)
[2021-06-20] MEDS: Albumin 25% 25 GM/100 ML BOT IVPB SCH ×3 (13:15→21:51)
[2021-06-20] MEDS: Midodrine HCl 5 MG TAB PO SCH ×2 (16:07→20:53)
[2021-06-20] MEDS: Scopolamine 1.5 mg/72 hour Patch TD SCH (16:55)
[2021-06-20] MEDS ORDERED: Lorazepam 2 MG/ML VIAL SLOW IVP SCH ×2 (19:15→21:00)
[2021-06-21] MEDS: Albumin 25% 25 GM/100 ML BOT IVPB SCH ×5 (00:44→23:42)
[2021-06-21] MEDS: Nicotine 14 MG PATCH TD SCH ×2 (01:02→21:22)
[2021-06-21] MEDS: Lorazepam 2 MG/ML VIAL SLOW IVP PRN ×3 (04:05→21:26)
[2021-06-21] MEDS: Cephalexin 250 MG CAP PO SCH ×3 (04:06→20:32)
[2021-06-21] MEDS: Octreotide Acetate 50 MCG/ML AMP SC SCH ×4 (06:28→21:15)
[2021-06-21] MEDS: Magnesium Oxide 400 MG TAB PO SCH (09:03)
[2021-06-21] MEDS: Folic Acid 1 MG TAB PO SCH (09:03)
[2021-06-21] MEDS: Simethicone Chewable 80 MG TAB PO SCH ×4 (09:03→20:33)
[2021-06-21] MEDS: busPIRone HCl 10 MG TAB PO SCH ×2 (09:03→20:33)
[2021-06-21] MEDS: Polyethylene Glycol 3350 17 GM Packet PO SCH (09:03)
[2021-06-21] MEDS: Senokot S 8.6-50 MG TAB PO SCH ×2 (09:03→21:22)
[2021-06-21] MEDS: Thiamine 100 MG TAB PO SCH (09:03)
[2021-06-21] MEDS: Midodrine HCl 5 MG TAB PO SCH ×3 (09:03→20:33)
[2021-06-21] MEDS: Potassium Chloride 20 MEQ TAB PO SCH ×2 (09:03→15:43)
[2021-06-21] MEDS: Enoxaparin Sodium 60 MG/0.6 ML SYRINGE SC SCH ×2 (09:04→20:32)
[2021-06-21] MEDS: Docusate Sodium 100 MG/10 ML UDCUP PO SCH ×2 (09:04→21:22)
[2021-06-21 11:45] LABS: INR-International Normal Ratio 1.7; Prothrombin Time 20.2 sec (12.0-14.7)
[2021-06-21] MEDS ORDERED: Potassium Chloride 20 MEQ TAB PO SCH (12:00)
[2021-06-21 12:05] LABS: ALT (SGPT) 22 U/L (8-55); AST (SGOT) 88 U/L (5-34); Albumin 2.9 g/dL (3.5-5.0); Alkaline Phosphatase 98 U/L (40-110); Anion Gap 15 mmol/L (10-20); BUN (Urea Nitrogen) 34 mg/dL (8.9-20.6); Bilirubin, Total 6.1 mg/dL (0.2-1.2); Calc. Creatinine Clearance 56 mL/min (70-130); Calcium 8.2 mg/dL (7.8-10.44); Carbon Dioxide 28 mmol/L (22-29); Chloride 96 mmol/L (98-107); Globulin 3.5 g/dL (2.4-3.5); Glucose 115 mg/dL (70-105); Protein, Total 6.4 g/dL (6.0-8.3); Sodium 135 mmol/L (136-145)
[2021-06-21 12:45] LABS: Iron 80 ug/dL (65-175); Iron Binding Capacity, Total 76 mcg/dL (261-462)
[2021-06-21 16:42] LABS: ANA Symphony (Qualitative) Negative (Negative); ANA Symphony (Quantitative) 0.2 Ratio (< 0.7 Negative); EliA Vaculitis New Method **** NEW METHOD ****; Mitochondrial Ab 1.1 U/mL (<4 Negative); dsDNA IgG Antibody 1.6 IU/mL (<10 Negative)
[2021-06-21] MEDS: hydrOXYzine 25 MG TAB PO PRN (20:33)
[2021-06-21] MEDS: guaiFENesin/DM ER PO SCH (21:12)
[2021-06-21] MEDS: Melatonin 3 MG TAB PO SCH (21:12)
[2021-06-22] MEDS: Acetaminophen 325 MG TAB PO PRN (02:36)
[2021-06-22] MEDS: hydrOXYzine 25 MG TAB PO PRN ×2 (02:36→22:29)
[2021-06-22] MEDS ORDERED: Metoclopramide 10 MG/10 ML UDCUP PO SCH (07:30)
[2021-06-22] MEDS: Cephalexin 250 MG CAP PO SCH ×3 (07:33→22:28)
[2021-06-22] MEDS: Octreotide Acetate 50 MCG/ML AMP SC SCH ×2 (07:33→16:44)
[2021-06-22] MEDS: Albumin 25% 25 GM/100 ML BOT IVPB SCH ×3 (07:33→17:01)
[2021-06-22 09:22] LABS: ALT (SGPT) 20 U/L (8-55); AST (SGOT) 70 U/L (5-34); Albumin 3.6 g/dL (3.5-5.0); Alkaline Phosphatase 97 U/L (40-110); Anion Gap 18 mmol/L (10-20); BUN (Urea Nitrogen) 36 mg/dL (8.9-20.6); Bilirubin, Total 5.9 mg/dL (0.2-1.2); Calc. Creatinine Clearance 47 mL/min (70-130); Calcium 8.7 mg/dL (7.8-10.44); Carbon Dioxide 30 mmol/L (22-29); Chloride 93 mmol/L (98-107); Globulin 3.6 g/dL (2.4-3.5); Glucose 99 mg/dL (70-105); Potassium 3.8 mmol/L (3.5-5.1); Protein, Total 7.2 g/dL (6.0-8.3); Sodium 137 mmol/L (136-145)
[2021-06-22 09:27] LABS: INR-International Normal Ratio 1.7; Prothrombin Time 20.2 sec (12.0-14.7)
[2021-06-22] MEDS: Midodrine HCl 5 MG TAB PO SCH ×3 (09:56→22:28)
[2021-06-22] MEDS: Senokot S 8.6-50 MG TAB PO SCH ×2 (09:56→22:30)
[2021-06-22] MEDS: Simethicone Chewable 80 MG TAB PO SCH ×4 (09:56→22:27)
[2021-06-22] MEDS: Enoxaparin Sodium 60 MG/0.6 ML SYRINGE SC SCH ×2 (09:56→20:29)
[2021-06-22] MEDS: Magnesium Oxide 400 MG TAB PO SCH (09:56)
[2021-06-22] MEDS: Folic Acid 1 MG TAB PO SCH (09:57)
[2021-06-22] MEDS: guaiFENesin/DM ER PO SCH ×2 (09:57→22:30)
[2021-06-22] MEDS: Thiamine 100 MG TAB PO SCH (09:57)
[2021-06-22] MEDS: busPIRone HCl 10 MG TAB PO SCH ×2 (09:57→22:29)
[2021-06-22] MEDS: Docusate Sodium 100 MG/10 ML UDCUP PO SCH ×2 (09:58→22:30)
[2021-06-22] MEDS: Potassium Chloride 20 MEQ TAB PO SCH ×2 (09:58→16:04)
[2021-06-22] MEDS: Polyethylene Glycol 3350 17 GM Packet PO SCH (09:58)
[2021-06-22] MEDS ORDERED: diphenhydrAMINE 50 MG/ML VIAL IVP SCH ×2 (12:00→21:30)
[2021-06-22] MEDS ORDERED: Octreotide Acetate 500 MCG/ML VIAL SC SCH (16:45)
[2021-06-22] MEDS: Melatonin 3 MG TAB PO SCH (22:25)
[2021-06-22] MEDS: Nicotine 14 MG PATCH TD SCH (22:27)
[2021-06-22] MEDS: Lorazepam 2 MG/ML VIAL SLOW IVP PRN (22:27)
[2021-06-22] MEDS: Nystatin Powder 15 GM BOT TOP SCH (22:30)
[2021-06-22] MEDS: Octreotide Acetate 500 MCG/ML VIAL SC SCH (23:36)
[2021-06-23] MEDS: Lorazepam 2 MG/ML VIAL SLOW IVP PRN ×3 (05:37→17:12)
[2021-06-23] MEDS: Cephalexin 250 MG CAP PO SCH ×3 (05:37→21:38)
[2021-06-23 07:20] LABS: INR-International Normal Ratio 1.7; Prothrombin Time 20.1 sec (12.0-14.7)
[2021-06-23 07:30] LABS: ALT (SGPT) 18 U/L (8-55); AST (SGOT) 60 U/L (5-34); Albumin 3.4 g/dL (3.5-5.0); Alkaline Phosphatase 85 U/L (40-110); Anion Gap 18 mmol/L (10-20); BUN (Urea Nitrogen) 44 mg/dL (8.9-20.6); Bilirubin, Total 5.7 mg/dL (0.2-1.2); Calc. Creatinine Clearance 42 mL/min (70-130); Calcium 8.9 mg/dL (7.8-10.44); Carbon Dioxide 27 mmol/L (22-29); Chloride 94 mmol/L (98-107); Globulin 3.6 g/dL (2.4-3.5); Glucose 90 mg/dL (70-105); Potassium 4.2 mmol/L (3.5-5.1); Sodium 135 mmol/L (136-145)
[2021-06-23] MEDS: Octreotide Acetate 500 MCG/ML VIAL SC SCH ×3 (08:40→22:36)
[2021-06-23] MEDS: Senokot S 8.6-50 MG TAB PO SCH ×2 (08:40→21:38)
[2021-06-23] MEDS: Midodrine HCl 5 MG TAB PO SCH ×3 (08:41→21:38)
[2021-06-23] MEDS: Magnesium Oxide 400 MG TAB PO SCH (08:41)
[2021-06-23] MEDS: Potassium Chloride 20 MEQ TAB PO SCH ×2 (08:42→17:12)
[2021-06-23] MEDS: Folic Acid 1 MG TAB PO SCH (08:42)
[2021-06-23] MEDS: busPIRone HCl 10 MG TAB PO SCH ×2 (08:42→21:37)
[2021-06-23] MEDS: hydrOXYzine 25 MG TAB PO PRN ×3 (08:43→21:39)
[2021-06-23] MEDS: Simethicone Chewable 80 MG TAB PO SCH ×4 (08:43→21:39)
[2021-06-23] MEDS: guaiFENesin/DM ER PO SCH ×2 (08:44→21:39)
[2021-06-23] MEDS: Enoxaparin Sodium 60 MG/0.6 ML SYRINGE SC SCH ×2 (08:44→21:37)
[2021-06-23] MEDS: Thiamine 100 MG TAB PO SCH (08:44)
[2021-06-23] MEDS: Polyethylene Glycol 3350 17 GM Packet PO SCH (08:44)
[2021-06-23] MEDS: Docusate Sodium 100 MG/10 ML UDCUP PO SCH ×2 (08:55→20:55)
[2021-06-23] MEDS: Nystatin Powder 15 GM BOT TOP SCH ×2 (08:56→21:39)
[2021-06-23] MEDS ORDERED: ceFAZolin Sodium/D5W 2 GM in Premix Bag 1 BAG IVPB SCH (14:45)
[2021-06-23] MEDS: Scopolamine 1.5 mg/72 hour Patch TD SCH (15:19)
[2021-06-23] MEDS: diphenhydrAMINE 50 MG/ML VIAL IVP PRN (21:31)
[2021-06-23] MEDS: Melatonin 3 MG TAB PO SCH (21:42)
[2021-06-23] MEDS: Nicotine 14 MG PATCH TD SCH (22:33)
[2021-06-24] MEDS: Lorazepam 2 MG/ML VIAL SLOW IVP PRN ×2 (03:09→21:04)
[2021-06-24] MEDS: diphenhydrAMINE 50 MG/ML VIAL IVP PRN ×2 (03:10→21:02)
[2021-06-24] MEDS: Cephalexin 250 MG CAP PO SCH (06:27)
[2021-06-24] MEDS ORDERED: Fentanyl 100 MCG/2 ML VIAL ONE (06:33)
[2021-06-24] MEDS ORDERED: Heparin 10,000 UNITS/ 10 ML VIAL ONE ×2 (06:51→09:08)
[2021-06-24] MEDS ORDERED: Sodium Chloride 0.9% 30 ML ONE (06:51)
[2021-06-24] MEDS ORDERED: Bupivacaine 0.25% HCL 30 ML VIAL ONE (06:51)
[2021-06-24] MEDS ORDERED: Lidocaine 1% w/Epinephrine 1:100K 20 ML VIAL ONE (06:51)
[2021-06-24] MEDS ORDERED: SUGAMMADEX SODIUM 200 MG/2 ML VIAL ONE (07:17)
[2021-06-24 07:19] LABS: ALT (SGPT) 17 U/L (8-55); AST (SGOT) 54 U/L (5-34); Albumin 3.3 g/dL (3.5-5.0); Alkaline Phosphatase 81 U/L (40-110); Anion Gap 16 mmol/L (10-20); BUN (Urea Nitrogen) 49 mg/dL (8.9-20.6); Bilirubin, Total 5.3 mg/dL (0.2-1.2); Calc. Creatinine Clearance 41 mL/min (70-130); Calcium 8.8 mg/dL (7.8-10.44); Carbon Dioxide 26 mmol/L (22-29); Chloride 93 mmol/L (98-107); Globulin 3.7 g/dL (2.4-3.5); Glucose 88 mg/dL (70-105); Potassium 4.2 mmol/L (3.5-5.1); Sodium 131 mmol/L (136-145)
[2021-06-24] MEDS ORDERED: Insulin Regular 300 UNITS/3 ML VIAL ONE (07:25)
[2021-06-24] MEDS ORDERED: ceFAZolin 2 GM/DEX 5% 100 ML BAG ONE (07:27)
[2021-06-24 07:39] LABS: INR-International Normal Ratio 1.9; Prothrombin Time 22.1 sec (12.0-14.7)
[2021-06-24] MEDS ORDERED: Ondansetron PF 4 MG/2 ML Vial ONE (07:52)
[2021-06-24] MEDS ORDERED: PROPOFOL 200 MG/20 ML VIAL ONE (07:52)
[2021-06-24] MEDS ORDERED: Rocuronium Bromide 10 MG/ML (10ML VIAL) ONE (07:52)
[2021-06-24] MEDS ORDERED: ePHEDrine 50 MG/ML VIAL ONE (07:52)
[2021-06-24] MEDS ORDERED: Lidocaine 1% PF 5 ML VIAL ONE (07:52)
[2021-06-24] MEDS: Potassium Chloride 20 MEQ TAB PO SCH ×2 (10:08→16:38)
[2021-06-24] MEDS: Thiamine 100 MG TAB PO SCH (10:08)
[2021-06-24] MEDS: Nicotine 14 MG PATCH TD SCH (10:08)
[2021-06-24] MEDS: Folic Acid 1 MG TAB PO SCH (10:08)
[2021-06-24] MEDS: Simethicone Chewable 80 MG TAB PO SCH ×4 (10:08→21:06)
[2021-06-24] MEDS: Enoxaparin Sodium 60 MG/0.6 ML SYRINGE SC SCH ×2 (10:08→21:08)
[2021-06-24] MEDS: Magnesium Oxide 400 MG TAB PO SCH (10:08)
[2021-06-24] MEDS: hydrOXYzine 25 MG TAB PO PRN (10:09)
[2021-06-24] MEDS: busPIRone HCl 10 MG TAB PO SCH ×2 (10:09→21:06)
[2021-06-24] MEDS: Octreotide Acetate 500 MCG/ML VIAL SC SCH ×3 (10:09→23:26)
[2021-06-24] MEDS: Senokot S 8.6-50 MG TAB PO SCH ×3 (10:10→21:25)
[2021-06-24] MEDS: Docusate Sodium 100 MG/10 ML UDCUP PO SCH ×2 (10:10→22:29)
[2021-06-24] MEDS: guaiFENesin/DM ER PO SCH ×2 (10:10→21:08)
[2021-06-24] MEDS: Midodrine HCl 5 MG TAB PO SCH ×3 (10:10→21:06)
[2021-06-24] MEDS: Polyethylene Glycol 3350 17 GM Packet PO SCH (10:11)
[2021-06-24] MEDS: Nystatin Powder 15 GM BOT TOP SCH ×2 (10:11→21:08)
[2021-06-24] MEDS ORDERED: Albumin 25% 25 GM/100 ML BOT IVPB SCH (13:15)
[2021-06-24] MEDS: Melatonin 3 MG TAB PO SCH (21:05)
[2021-06-25] MEDS: hydrOXYzine 25 MG TAB PO PRN ×2 (01:19→17:37)
[2021-06-25] MEDS: Acetaminophen 325 MG TAB PO PRN (01:19)
[2021-06-25] MEDS: Lorazepam 2 MG/ML VIAL SLOW IVP PRN ×3 (02:52→20:38)
[2021-06-25 06:33] LABS: Hemoglobin 10.8 g/dL (14.0-18.0); Mean Corpuscular HGB CONC 33.2 g/dL (32.0-36.0); Mean Corpuscular Hemoglobin 38.2 pg (27.0-31.0); Mean Platelet Volume 6.7 fL (7.4-10.4); Platelet Count 124 thou/uL (130-400); Red Blood Cell (RBC) Count 2.84 mill/uL (4.70-6.10); White Blood Cell (WBC) Count 9.4 thou/uL (4.8-10.8)
[2021-06-25 06:46] LABS: INR-International Normal Ratio 1.8
[2021-06-25 06:53] LABS: Phosphorus 7.1 mg/dL (2.3-4.7)
[2021-06-25 06:55] LABS: ALT (SGPT) 14 U/L (8-55); AST (SGOT) 60 U/L (5-34); Albumin 3.3 g/dL (3.5-5.0); Alkaline Phosphatase 81 U/L (40-110); Anion Gap 16 mmol/L (10-20); BUN (Urea Nitrogen) 47 mg/dL (8.9-20.6); Bilirubin, Total 4.7 mg/dL (0.2-1.2); Calc. Creatinine Clearance 42 mL/min (70-130); Calcium 8.9 mg/dL (7.8-10.44); Carbon Dioxide 27 mmol/L (22-29); Chloride 94 mmol/L (98-107); Globulin 3.8 g/dL (2.4-3.5); Glucose 85 mg/dL (70-105); Potassium 3.8 mmol/L (3.5-5.1); Protein, Total 7.1 g/dL (6.0-8.3); Sodium 133 mmol/L (136-145)
[2021-06-25] MEDS: Enoxaparin Sodium 60 MG/0.6 ML SYRINGE SC SCH (09:00)
[2021-06-25] MEDS: Magnesium Oxide 400 MG TAB PO SCH (09:00)
[2021-06-25] MEDS ORDERED: Heparin 10,000 UNITS/ 10 ML VIAL ONE (09:10)
[2021-06-25] MEDS: Octreotide Acetate 500 MCG/ML VIAL SC SCH ×3 (09:19→23:06)
[2021-06-25] MEDS ORDERED: Albumin 25% 25 GM/100 ML BOT IVPB SCH (10:15)
[2021-06-25] MEDS: Nicotine 14 MG PATCH TD SCH (10:32)
[2021-06-25] MEDS: Midodrine HCl 5 MG TAB PO SCH ×3 (10:32→20:25)
[2021-06-25] MEDS: Potassium Chloride 20 MEQ TAB PO SCH (11:04)
[2021-06-25] MEDS: Simethicone Chewable 80 MG TAB PO SCH ×4 (11:05→20:25)
[2021-06-25] MEDS: Docusate Sodium 100 MG/10 ML UDCUP PO SCH ×2 (11:05→20:27)
[2021-06-25] MEDS: busPIRone HCl 10 MG TAB PO SCH ×3 (11:05→20:26)
[2021-06-25 12:25] LABS: SARS-CoV-2 PCR by NAA Not Detected (NotDetected)
[2021-06-25] MEDS: Senokot S 8.6-50 MG TAB PO SCH ×2 (14:44→20:28)
[2021-06-25] MEDS: guaiFENesin/DM ER PO SCH ×2 (14:45→20:27)
[2021-06-25] MEDS: Folic Acid 1 MG TAB PO SCH (14:45)
[2021-06-25] MEDS: Nystatin Powder 15 GM BOT TOP SCH ×2 (14:46→20:27)
[2021-06-25] MEDS: Polyethylene Glycol 3350 17 GM Packet PO SCH (14:46)
[2021-06-25] MEDS: Thiamine 100 MG TAB PO SCH (14:47)
[2021-06-25] MEDS: Heparin 5,000 UNITS/ML VIAL SC SCH ×2 (14:54→20:27)
[2021-06-25] MEDS: Melatonin 3 MG TAB PO SCH (20:25)
[2021-06-25] MEDS: diphenhydrAMINE 50 MG/ML VIAL IVP PRN (20:38)
[2021-06-26] MEDS: hydrOXYzine 25 MG TAB PO PRN ×2 (05:25→21:05)
[2021-06-26] MEDS: Lorazepam 2 MG/ML VIAL SLOW IVP PRN ×2 (06:35→17:00)
[2021-06-26 06:58] LABS: INR-International Normal Ratio 1.7; PTT 50.5 sec (22.9-36.1); Prothrombin Time 20.4 sec (12.0-14.7)
[2021-06-26 07:18] LABS: ALT (SGPT) 13 U/L (8-55); AST (SGOT) 75 U/L (5-34); Albumin 3.4 g/dL (3.5-5.0); Alkaline Phosphatase 81 U/L (40-110); Anion Gap 15 mmol/L (10-20); BUN (Urea Nitrogen) 37 mg/dL (8.9-20.6); Calc. Creatinine Clearance 46 mL/min (70-130); Carbon Dioxide 28 mmol/L (22-29); Chloride 96 mmol/L (98-107); Globulin 3.5 g/dL (2.4-3.5); Glucose 78 mg/dL (70-105); Potassium 4.3 mmol/L (3.5-5.1); Protein, Total 6.9 g/dL (6.0-8.3); Sodium 135 mmol/L (136-145)
[2021-06-26] MEDS: Midodrine HCl 5 MG TAB PO SCH ×3 (08:23→23:00)
[2021-06-26] MEDS: Polyethylene Glycol 3350 17 GM Packet PO SCH (08:28)
[2021-06-26] MEDS: Senokot S 8.6-50 MG TAB PO SCH ×2 (08:28→21:00)
[2021-06-26] MEDS: Docusate Sodium 100 MG/10 ML UDCUP PO SCH ×2 (08:28→21:00)
[2021-06-26] MEDS: Simethicone Chewable 80 MG TAB PO SCH ×4 (10:13→21:05)
[2021-06-26] MEDS: busPIRone HCl 10 MG TAB PO SCH ×2 (10:13→21:03)
[2021-06-26] MEDS: Octreotide Acetate 500 MCG/ML VIAL SC SCH ×2 (10:13→15:57)
[2021-06-26] MEDS: Heparin 5,000 UNITS/ML VIAL SC SCH ×3 (10:14→21:06)
[2021-06-26] MEDS ORDERED: Heparin 10,000 UNITS/ 10 ML VIAL ONE (10:47)
[2021-06-26] MEDS: guaiFENesin/DM ER PO SCH ×2 (10:53→21:05)
[2021-06-26] MEDS: Multivitamin W/ Minerals 1 TAB PO SCH (13:46)
[2021-06-26] MEDS: Folic Acid 1 MG TAB PO SCH (13:46)
[2021-06-26] MEDS: Pantoprazole 40 MG VIAL IVP SCH (13:47)
[2021-06-26] MEDS: Nicotine 14 MG PATCH TD SCH (13:47)
[2021-06-26] MEDS: Thiamine 100 MG TAB PO SCH (13:47)
[2021-06-26] MEDS: Nystatin Powder 15 GM BOT TOP SCH ×2 (13:47→21:10)
[2021-06-26] MEDS: diphenhydrAMINE 50 MG/ML VIAL IVP PRN ×2 (13:51→21:07)
[2021-06-26] MEDS: Scopolamine 1.5 mg/72 hour Patch TD SCH (15:58)
[2021-06-26] MEDS: Melatonin 3 MG TAB PO SCH (21:05)
[2021-06-27 06:40] LABS: Prothrombin Time 22.6 sec (12.0-14.7)
[2021-06-27 06:41] LABS: PTT 51.1 sec (22.9-36.1)
[2021-06-27] MEDS: Midodrine HCl 5 MG TAB PO SCH ×3 (08:06→22:55)
[2021-06-27 08:24] LABS: ALT (SGPT) 10 U/L (8-55); AST (SGOT) 67 U/L (5-34); Albumin 3.4 g/dL (3.5-5.0); Alkaline Phosphatase 77 U/L (40-110); Anion Gap 14 mmol/L (10-20); BUN (Urea Nitrogen) 40 mg/dL (8.9-20.6); Bilirubin, Total 5.2 mg/dL (0.2-1.2); Calc. Creatinine Clearance 46 mL/min (70-130); Carbon Dioxide 28 mmol/L (22-29); Chloride 97 mmol/L (98-107); Globulin 3.6 g/dL (2.4-3.5); Glucose 78 mg/dL (70-105); Potassium 4.4 mmol/L (3.5-5.1); Sodium 135 mmol/L (136-145)
[2021-06-27] MEDS: Simethicone Chewable 80 MG TAB PO SCH ×4 (10:49→22:56)
[2021-06-27] MEDS: busPIRone HCl 10 MG TAB PO SCH ×2 (10:49→22:55)
[2021-06-27] MEDS: Senokot S 8.6-50 MG TAB PO SCH ×2 (10:50→22:56)
[2021-06-27] MEDS: Docusate Sodium 100 MG/10 ML UDCUP PO SCH ×2 (10:50→22:55)
[2021-06-27] MEDS: guaiFENesin/DM ER PO SCH ×2 (10:50→22:55)
[2021-06-27] MEDS ORDERED: Heparin 10,000 UNITS/ 10 ML VIAL ONE (10:50)
[2021-06-27] MEDS: Heparin 5,000 UNITS/ML VIAL SC SCH ×3 (10:50→22:55)
[2021-06-27] MEDS: Folic Acid 1 MG TAB PO SCH (15:22)
[2021-06-27] MEDS: Multivitamin W/ Minerals 1 TAB PO SCH (15:22)
[2021-06-27] MEDS: Polyethylene Glycol 3350 17 GM Packet PO SCH (15:23)
[2021-06-27] MEDS: Pantoprazole 40 MG VIAL IVP SCH (15:23)
[2021-06-27] MEDS: Nystatin Powder 15 GM BOT TOP SCH ×2 (15:23→22:55)
[2021-06-27] MEDS: Thiamine 100 MG TAB PO SCH (15:23)
[2021-06-27] MEDS: Lorazepam 2 MG/ML VIAL SLOW IVP PRN ×2 (15:25→22:41)
[2021-06-27] MEDS: diphenhydrAMINE 50 MG/ML VIAL IVP PRN ×2 (15:25→20:58)
[2021-06-27] MEDS: Nicotine 14 MG PATCH TD SCH (16:09)
[2021-06-27] MEDS: Melatonin 3 MG TAB PO SCH (22:55)
[2021-06-27] MEDS ORDERED: diphenhydrAMINE 50 MG/ML VIAL IVP SCH (23:30)
[2021-06-28 07:31] LABS: INR-International Normal Ratio 1.9; Prothrombin Time 21.7 sec (12.0-14.7)
[2021-06-28 07:32] LABS: PTT 48.4 sec (22.9-36.1)
[2021-06-28 07:47] LABS: ALT (SGPT) 11 U/L (8-55); AST (SGOT) 65 U/L (5-34); Albumin 3.3 g/dL (3.5-5.0); Alkaline Phosphatase 77 U/L (40-110); Anion Gap 14 mmol/L (10-20); BUN (Urea Nitrogen) 37 mg/dL (8.9-20.6); Bilirubin, Total 5.3 mg/dL (0.2-1.2); Calc. Creatinine Clearance 47 mL/min (70-130); Carbon Dioxide 28 mmol/L (22-29); Chloride 97 mmol/L (98-107); Globulin 3.8 g/dL (2.4-3.5); Glucose 79 mg/dL (70-105); Potassium 4.2 mmol/L (3.5-5.1); Protein, Total 7.1 g/dL (6.0-8.3); Sodium 135 mmol/L (136-145)
[2021-06-28] MEDS: Multivitamin W/ Minerals 1 TAB PO SCH ×2 (09:42→10:07)
[2021-06-28] MEDS: Thiamine 100 MG TAB PO SCH ×2 (09:42→10:07)
[2021-06-28] MEDS: guaiFENesin/DM ER PO SCH ×3 (09:42→22:48)
[2021-06-28] MEDS: Senokot S 8.6-50 MG TAB PO SCH ×2 (09:43→22:49)
[2021-06-28] MEDS: Nystatin Powder 15 GM BOT TOP SCH ×2 (09:43→22:49)
[2021-06-28] MEDS: Pantoprazole 40 MG VIAL IVP SCH (09:43)
[2021-06-28] MEDS: Folic Acid 1 MG TAB PO SCH ×2 (09:43→10:06)
[2021-06-28] MEDS: Nicotine 14 MG PATCH TD SCH (09:43)
[2021-06-28] MEDS: busPIRone HCl 10 MG TAB PO SCH ×3 (09:43→22:48)
[2021-06-28] MEDS: Midodrine HCl 5 MG TAB PO SCH ×4 (09:43→22:48)
[2021-06-28] MEDS: Polyethylene Glycol 3350 17 GM Packet PO SCH (09:43)
[2021-06-28] MEDS: Heparin 5,000 UNITS/ML VIAL SC SCH ×3 (09:43→22:48)
[2021-06-28] MEDS: Simethicone Chewable 80 MG TAB PO SCH ×4 (09:44→22:49)
[2021-06-28] MEDS: Docusate Sodium 100 MG/10 ML UDCUP PO SCH ×2 (09:44→22:48)
[2021-06-28] MEDS: diphenhydrAMINE 50 MG/ML VIAL IVP PRN ×3 (09:45→22:49)
[2021-06-28] MEDS ORDERED: Heparin 10,000 UNITS/ 10 ML VIAL ONE (10:48)
[2021-06-28 12:01] LABS: Hemoglobin 9.9 g/dL (14.0-18.0); Mean Platelet Volume 6.9 fL (7.4-10.4); Platelet Count 68 thou/uL (130-400); RBC Distribution Width 13.8 % (11.5-14.5); Red Blood Cell (RBC) Count 2.61 mill/uL (4.70-6.10); White Blood Cell (WBC) Count 10.7 thou/uL (4.8-10.8)
[2021-06-28] MEDS: Lorazepam 2 MG/ML VIAL SLOW IVP PRN (13:13)
[2021-06-28] MEDS: Melatonin 3 MG TAB PO SCH (22:48)
[2021-06-28] MEDS: hydrOXYzine 25 MG TAB PO PRN (22:49)
[2021-06-29] MEDS: hydrOXYzine 25 MG TAB PO PRN (04:36)
[2021-06-29 06:30] LABS: PTT 51.7 sec (22.9-36.1); Prothrombin Time 22.8 sec (12.0-14.7)
[2021-06-29] MEDS: diphenhydrAMINE 50 MG/ML VIAL IVP PRN ×2 (06:39→15:57)
[2021-06-29 06:41] LABS: ALT (SGPT) 12 U/L (8-55); AST (SGOT) 63 U/L (5-34); Albumin 3.1 g/dL (3.5-5.0); Alkaline Phosphatase 73 U/L (40-110); Anion Gap 13 mmol/L (10-20); BUN (Urea Nitrogen) 36 mg/dL (8.9-20.6); Bilirubin, Total 5.1 mg/dL (0.2-1.2); Calc. Creatinine Clearance 46 mL/min (70-130); Calcium 8.9 mg/dL (7.8-10.44); Carbon Dioxide 30 mmol/L (22-29); Chloride 97 mmol/L (98-107); Globulin 3.6 g/dL (2.4-3.5); Glucose 75 mg/dL (70-105); Potassium 4.2 mmol/L (3.5-5.1); Protein, Total 6.7 g/dL (6.0-8.3); Sodium 136 mmol/L (136-145)
[2021-06-29] MEDS: Lorazepam 2 MG/ML VIAL SLOW IVP PRN (08:16)
[2021-06-29] MEDS: Nicotine 14 MG PATCH TD SCH (08:16)
[2021-06-29] MEDS: Pantoprazole 40 MG VIAL IVP SCH (08:16)
[2021-06-29] MEDS: Midodrine HCl 5 MG TAB PO SCH ×3 (08:17→21:57)
[2021-06-29] MEDS: busPIRone HCl 10 MG TAB PO SCH ×2 (08:17→21:55)
[2021-06-29] MEDS: Multivitamin W/ Minerals 1 TAB PO SCH (08:17)
[2021-06-29] MEDS: guaiFENesin/DM ER PO SCH ×2 (08:18→21:56)
[2021-06-29] MEDS: Folic Acid 1 MG TAB PO SCH (08:18)
[2021-06-29] MEDS: Thiamine 100 MG TAB PO SCH (08:18)
[2021-06-29] MEDS: Nystatin Powder 15 GM BOT TOP SCH ×2 (08:24→21:57)
[2021-06-29] MEDS: Polyethylene Glycol 3350 17 GM Packet PO SCH (08:24)
[2021-06-29] MEDS: Docusate Sodium 100 MG/10 ML UDCUP PO SCH ×2 (08:24→21:58)
[2021-06-29] MEDS: Simethicone Chewable 80 MG TAB PO SCH ×4 (08:24→21:57)
[2021-06-29] MEDS: Heparin 5,000 UNITS/ML VIAL SC SCH ×3 (08:24→21:56)
[2021-06-29] MEDS: Senokot S 8.6-50 MG TAB PO SCH ×2 (08:25→21:57)
[2021-06-29] MEDS ORDERED: Heparin 10,000 UNITS/ 10 ML VIAL ONE (10:49)
[2021-06-29] MEDS ORDERED: Albumin 25% 25 GM/100 ML BOT IVPB SCH (11:30)
[2021-06-29 13:07] LABS: #Eosinphils 0.3 thou/uL (0.0-0.7); #Lymphocytes 1.7 thou/uL (1.20-3.40); #Monocytes 1.3 thou/uL (0.11-0.59); #Neutrophils 10.3 thou/uL (1.40-6.50); %Basophils 0.3 % (0.0-1.0); %Eosinophils 2.4 % (0.0-10.0); %Lymphocytes 12.5 % (21.0-51.0); %Monocytes 9.5 % (0.0-10.0); %Neutrophils 75.3 % (42.0-75.0); Hemoglobin 9.9 g/dL (14.0-18.0); Mean Corpuscular Hemoglobin 37.1 pg (27.0-31.0); Mean Platelet Volume 6.7 fL (7.4-10.4); Platelet Count 40 thou/uL (130-400); RBC Distribution Width 13.7 % (11.5-14.5); Red Blood Cell (RBC) Count 2.66 mill/uL (4.70-6.10); White Blood Cell (WBC) Count 13.6 thou/uL (4.8-10.8)
[2021-06-29] MEDS: Scopolamine 1.5 mg/72 hour Patch TD SCH (17:48)
[2021-06-29] MEDS: Melatonin 3 MG TAB PO SCH (21:56)
[2021-06-30] MEDS: diphenhydrAMINE 50 MG/ML VIAL IVP PRN ×2 (02:45→18:38)
[2021-06-30 06:11] LABS: Prothrombin Time 22.8 sec (12.0-14.7)
[2021-06-30 06:12] LABS: PTT 52.5 sec (22.9-36.1)
[2021-06-30] MEDS: Pantoprazole 40 MG VIAL IVP SCH (11:09)
[2021-06-30] MEDS: busPIRone HCl 10 MG TAB PO SCH ×2 (11:10→22:12)
[2021-06-30] MEDS: Senokot S 8.6-50 MG TAB PO SCH ×2 (11:10→22:14)
[2021-06-30] MEDS: Polyethylene Glycol 3350 17 GM Packet PO SCH (11:10)
[2021-06-30] MEDS: Multivitamin W/ Minerals 1 TAB PO SCH (11:12)
[2021-06-30] MEDS: Folic Acid 1 MG TAB PO SCH (11:12)
[2021-06-30] MEDS: guaiFENesin/DM ER PO SCH ×2 (11:12→22:13)
[2021-06-30] MEDS: Thiamine 100 MG TAB PO SCH (11:12)
[2021-06-30] MEDS: Docusate Sodium 100 MG/10 ML UDCUP PO SCH ×2 (11:13→22:13)
[2021-06-30] MEDS: Midodrine HCl 5 MG TAB PO SCH ×3 (11:14→22:14)
[2021-06-30] MEDS: Nystatin Powder 15 GM BOT TOP SCH ×2 (11:15→22:14)
[2021-06-30] MEDS: Zinc Oxide 20% Oint 30 GM TUBE TOP SCH ×2 (11:16→23:46)
[2021-06-30] MEDS: Simethicone Chewable 80 MG TAB PO SCH ×4 (11:16→22:14)
[2021-06-30] MEDS: Nicotine 14 MG PATCH TD SCH (12:36)
[2021-06-30] MEDS: Heparin 5,000 UNITS/ML VIAL SC SCH (12:39)
[2021-06-30] MEDS: Benzonatate 100 MG CAP PO SCH ×2 (15:51→22:12)
[2021-06-30 20:12] LABS: #Eosinphils 0.3 thou/uL (0.0-0.7); #Monocytes 1.1 thou/uL (0.11-0.59); #Neutrophils 7.8 thou/uL (1.40-6.50); %Basophils 0.2 % (0.0-1.0); %Eosinophils 2.7 % (0.0-10.0); %Lymphocytes 17.9 % (21.0-51.0); %Monocytes 9.9 % (0.0-10.0); %Neutrophils 69.3 % (42.0-75.0); Mean Corpuscular HGB CONC 34.4 g/dL (32.0-36.0); Mean Corpuscular Hemoglobin 38.7 pg (27.0-31.0); Mean Platelet Volume 6.9 fL (7.4-10.4); Platelet Count 54 thou/uL (130-400); RBC Distribution Width 13.5 % (11.5-14.5); Red Blood Cell (RBC) Count 2.58 mill/uL (4.70-6.10); White Blood Cell (WBC) Count 11.3 thou/uL (4.8-10.8)
[2021-06-30 20:24] LABS: Phosphorus 5.6 mg/dL (2.3-4.7)
[2021-06-30 20:29] LABS: ALT (SGPT) 11 U/L (8-55); AST (SGOT) 66 U/L (5-34); Albumin 3.2 g/dL (3.5-5.0); Alkaline Phosphatase 76 U/L (40-110); Anion Gap 19 mmol/L (10-20); BUN (Urea Nitrogen) 42 mg/dL (8.9-20.6); Bilirubin, Total 5.4 mg/dL (0.2-1.2); Calc. Creatinine Clearance 40 mL/min (70-130); Calcium 8.9 mg/dL (7.8-10.44); Carbon Dioxide 25 mmol/L (22-29); Chloride 96 mmol/L (98-107); Globulin 3.9 g/dL (2.4-3.5); Glucose 77 mg/dL (70-105); Protein, Total 7.1 g/dL (6.0-8.3); Sodium 136 mmol/L (136-145)
[2021-06-30] MEDS: Melatonin 3 MG TAB PO SCH (22:13)
[2021-07-01] MEDS ORDERED: Calcium Carbonate 500 MG ChewTAB PO SCH (00:15)
[2021-07-01 07:56] LABS: INR-International Normal Ratio 1.9; Prothrombin Time 22.1 sec (12.0-14.7)
[2021-07-01 08:04] LABS: ALT (SGPT) 10 U/L (8-55); AST (SGOT) 63 U/L (5-34); Albumin 3.3 g/dL (3.5-5.0); Alkaline Phosphatase 77 U/L (40-110); Anion Gap 16 mmol/L (10-20); BUN (Urea Nitrogen) 43 mg/dL (8.9-20.6); Bilirubin, Total 5.7 mg/dL (0.2-1.2); Calc. Creatinine Clearance 38 mL/min (70-130); Calcium 9.2 mg/dL (7.8-10.44); Carbon Dioxide 27 mmol/L (22-29); Chloride 98 mmol/L (98-107); Glucose 79 mg/dL (70-105); Potassium 4.2 mmol/L (3.5-5.1); Protein, Total 7.3 g/dL (6.0-8.3); Sodium 137 mmol/L (136-145)
[2021-07-01] MEDS: Polyethylene Glycol 3350 17 GM Packet PO SCH (08:10)
[2021-07-01] MEDS: Simethicone Chewable 80 MG TAB PO SCH ×4 (08:25→21:24)
[2021-07-01] MEDS: Benzonatate 100 MG CAP PO SCH ×3 (08:27→21:17)
[2021-07-01] MEDS: busPIRone HCl 10 MG TAB PO SCH ×2 (08:27→21:18)
[2021-07-01] MEDS: guaiFENesin/DM ER PO SCH ×2 (08:28→21:18)
[2021-07-01] MEDS: Midodrine HCl 5 MG TAB PO SCH ×3 (08:28→21:20)
[2021-07-01] MEDS: Docusate Sodium 100 MG/10 ML UDCUP PO SCH ×2 (08:28→21:18)
[2021-07-01] MEDS: Nystatin Powder 15 GM BOT TOP SCH ×2 (08:29→21:20)
[2021-07-01] MEDS: Senokot S 8.6-50 MG TAB PO SCH ×2 (08:30→21:20)
[2021-07-01] MEDS ORDERED: Lorazepam 2 MG/ML VIAL SLOW IVP PRN (10:24)
[2021-07-01] MEDS ORDERED: Heparin 10,000 UNITS/ 10 ML VIAL ONE (11:36)
[2021-07-01] MEDS: Zinc Oxide 20% Oint 30 GM TUBE TOP SCH ×2 (13:13→21:20)
[2021-07-01] MEDS: Multivitamin W/ Minerals 1 TAB PO SCH (15:31)
[2021-07-01] MEDS: Thiamine 100 MG TAB PO SCH (15:31)
[2021-07-01] MEDS: Folic Acid 1 MG TAB PO SCH (15:31)
[2021-07-01] MEDS: Nicotine 14 MG PATCH TD SCH ×3 (15:37→16:56)
[2021-07-01] MEDS: Pantoprazole 40 MG VIAL IVP SCH (15:39)
[2021-07-01] MEDS: Melatonin 3 MG TAB PO SCH (21:19)
[2021-07-01] MEDS: diphenhydrAMINE 50 MG/ML VIAL IVP PRN (21:20)
[2021-07-02] MEDS: diphenhydrAMINE 50 MG/ML VIAL IVP PRN ×3 (04:00→13:15)
[2021-07-02 06:28] LABS: INR-International Normal Ratio 1.9; Prothrombin Time 21.6 sec (12.0-14.7)
[2021-07-02 06:29] LABS: PTT 47.1 sec (22.9-36.1)
[2021-07-02 08:09] LABS: Albumin 3.3 g/dL (3.5-5.0)
[2021-07-02 08:10] LABS: Chloride 96 mmol/L (98-107); Potassium 3.9 mmol/L (3.5-5.1); Sodium 134 mmol/L (136-145)
[2021-07-02 08:11] LABS: Calcium 8.9 mg/dL (7.8-10.44); Glucose 78 mg/dL (70-105)
[2021-07-02 08:12] LABS: Globulin 4.1 g/dL (2.4-3.5); Protein, Total 7.4 g/dL (6.0-8.3)
[2021-07-02 08:13] LABS: Anion Gap 14 mmol/L (10-20); Bilirubin, Total 5.6 mg/dL (0.2-1.2); Carbon Dioxide 28 mmol/L (22-29)
[2021-07-02 08:14] LABS: Alkaline Phosphatase 77 U/L (40-110)
[2021-07-02 08:15] LABS: Calc. Creatinine Clearance 47 mL/min (70-130)
[2021-07-02 08:16] LABS: BUN (Urea Nitrogen) 33 mg/dL (8.9-20.6)
[2021-07-02 08:17] LABS: AST (SGOT) 67 U/L (5-34)
[2021-07-02 08:18] LABS: ALT (SGPT) 13 U/L (8-55)
[2021-07-02] MEDS: Benzonatate 100 MG CAP PO SCH ×3 (09:02→20:46)
[2021-07-02] MEDS: Thiamine 100 MG TAB PO SCH (09:02)
[2021-07-02] MEDS: busPIRone HCl 10 MG TAB PO SCH ×2 (09:03→20:46)
[2021-07-02] MEDS: Multivitamin W/ Minerals 1 TAB PO SCH (09:03)
[2021-07-02] MEDS: Folic Acid 1 MG TAB PO SCH (09:03)
[2021-07-02] MEDS: Midodrine HCl 5 MG TAB PO SCH ×3 (09:04→20:46)
[2021-07-02] MEDS: guaiFENesin/DM ER PO SCH ×2 (09:05→20:46)
[2021-07-02] MEDS: Docusate Sodium 100 MG/10 ML UDCUP PO SCH ×2 (09:08→20:46)
[2021-07-02] MEDS: Polyethylene Glycol 3350 17 GM Packet PO SCH (09:09)
[2021-07-02] MEDS: Simethicone Chewable 80 MG TAB PO SCH ×4 (09:10→20:45)
[2021-07-02] MEDS: Zinc Oxide 20% Oint 30 GM TUBE TOP SCH ×2 (09:11→20:45)
[2021-07-02] MEDS: Nicotine 14 MG PATCH TD SCH (09:11)
[2021-07-02] MEDS: Senokot S 8.6-50 MG TAB PO SCH ×2 (09:11→20:44)
[2021-07-02] MEDS: Nystatin Powder 15 GM BOT TOP SCH ×2 (09:11→20:45)
[2021-07-02] MEDS ORDERED: Heparin 10,000 UNITS/ 10 ML VIAL ONE (14:17)
[2021-07-02] MEDS: Scopolamine 1.5 mg/72 hour Patch TD SCH (18:41)
[2021-07-02] MEDS: Melatonin 3 MG TAB PO SCH (20:46)
[2021-07-02] MEDS ORDERED: Calcium Carbonate 500 MG ChewTAB PO SCH (21:15)
[2021-07-02] MEDS ORDERED: Diclofenac 1% 100 GM GEL TP SCH (22:15)
[2021-07-03 01:05] LABS: SARS-CoV-2 PCR by NAA Not Detected (NotDetected)
[2021-07-03 07:00] LABS: Anion Gap 18 mmol/L (10-20); BUN (Urea Nitrogen) 37 mg/dL (8.9-20.6); Calc. Creatinine Clearance 48 mL/min (70-130); Calcium 9.2 mg/dL (7.8-10.44); Carbon Dioxide 27 mmol/L (22-29); Chloride 96 mmol/L (98-107); Glucose 90 mg/dL (70-105); Potassium 3.9 mmol/L (3.5-5.1); Sodium 137 mmol/L (136-145)
[2021-07-03] MEDS: busPIRone HCl 10 MG TAB PO SCH ×2 (08:19→20:22)
[2021-07-03] MEDS: guaiFENesin/DM ER PO SCH ×2 (08:20→20:22)
[2021-07-03] MEDS: Midodrine HCl 5 MG TAB PO SCH ×3 (08:21→20:22)
[2021-07-03] MEDS: Folic Acid 1 MG TAB PO SCH (08:21)
[2021-07-03] MEDS: Multivitamin W/ Minerals 1 TAB PO SCH (08:21)
[2021-07-03] MEDS: Benzonatate 100 MG CAP PO SCH ×3 (08:21→20:22)
[2021-07-03] MEDS: Thiamine 100 MG TAB PO SCH (08:21)
[2021-07-03] MEDS: Nystatin Powder 15 GM BOT TOP SCH ×2 (08:22→20:23)
[2021-07-03] MEDS: Zinc Oxide 20% Oint 30 GM TUBE TOP SCH ×2 (08:22→20:28)
[2021-07-03] MEDS: Simethicone Chewable 80 MG TAB PO SCH ×4 (08:22→20:23)
[2021-07-03] MEDS: Docusate Sodium 100 MG/10 ML UDCUP PO SCH ×2 (08:23→20:22)
[2021-07-03] MEDS: Senokot S 8.6-50 MG TAB PO SCH ×2 (08:23→20:20)
[2021-07-03] MEDS: diphenhydrAMINE 50 MG/ML VIAL IVP PRN ×2 (10:13→22:35)
[2021-07-03] MEDS: Nicotine 14 MG PATCH TD SCH (10:13)
[2021-07-03] MEDS: Polyethylene Glycol 3350 17 GM Packet PO SCH (12:07)
[2021-07-03] MEDS ORDERED: Heparin 10,000 UNITS/ 10 ML VIAL ONE (14:20)
[2021-07-03] MEDS: Melatonin 3 MG TAB PO SCH (20:22)
[2021-07-03] MEDS ORDERED: Calcium Carbonate 500 MG ChewTAB PO SCH (22:00)
[2021-07-04] MEDS: diphenhydrAMINE 50 MG/ML VIAL IVP PRN ×2 (01:43→06:44)
[2021-07-04 07:06] LABS: Anion Gap 13 mmol/L (10-20); BUN (Urea Nitrogen) 25 mg/dL (8.9-20.6); Calc. Creatinine Clearance 58 mL/min (70-130); Calcium 9.4 mg/dL (7.8-10.44); Carbon Dioxide 29 mmol/L (22-29); Chloride 97 mmol/L (98-107); Glucose 96 mg/dL (70-105); Potassium 4.2 mmol/L (3.5-5.1); Sodium 135 mmol/L (136-145)
[2021-07-04] MEDS: busPIRone HCl 10 MG TAB PO SCH ×2 (08:52→20:52)
[2021-07-04] MEDS: Thiamine 100 MG TAB PO SCH (08:52)
[2021-07-04] MEDS: Midodrine HCl 5 MG TAB PO SCH ×3 (08:52→20:53)
[2021-07-04] MEDS: Folic Acid 1 MG TAB PO SCH (08:52)
[2021-07-04] MEDS: Simethicone Chewable 80 MG TAB PO SCH ×4 (08:53→20:54)
[2021-07-04] MEDS: Multivitamin W/ Minerals 1 TAB PO SCH (08:54)
[2021-07-04] MEDS: guaiFENesin/DM ER PO SCH ×2 (08:54→20:51)
[2021-07-04] MEDS: Benzonatate 100 MG CAP PO SCH ×3 (08:54→20:51)
[2021-07-04] MEDS: Polyethylene Glycol 3350 17 GM Packet PO SCH (08:55)
[2021-07-04] MEDS: Senokot S 8.6-50 MG TAB PO SCH ×2 (08:55→20:51)
[2021-07-04] MEDS: Nicotine 14 MG PATCH TD SCH (08:55)
[2021-07-04] MEDS: Docusate Sodium 100 MG/10 ML UDCUP PO SCH ×2 (08:57→20:51)
[2021-07-04] MEDS: Nystatin Powder 15 GM BOT TOP SCH ×2 (09:00→20:57)
[2021-07-04] MEDS: Zinc Oxide 20% Oint 30 GM TUBE TOP SCH ×2 (09:01→20:57)
[2021-07-04] MEDS ORDERED: Heparin 10,000 UNITS/ 10 ML VIAL ONE (14:22)
[2021-07-04] MEDS: Acetaminophen 325 MG TAB PO PRN (20:53)
[2021-07-04] MEDS: Melatonin 3 MG TAB PO SCH (20:53)
[2021-07-05] MEDS: diphenhydrAMINE 50 MG/ML VIAL IVP PRN ×5 (00:31→22:50)
[2021-07-05] MEDS: Calcium Carbonate 500 MG ChewTAB PO PRN (05:18)
[2021-07-05 05:45] LABS: Anion Gap 15 mmol/L (10-20); BUN (Urea Nitrogen) 33 mg/dL (8.9-20.6); Calc. Creatinine Clearance 55 mL/min (70-130); Calcium 9.2 mg/dL (7.8-10.44); Carbon Dioxide 28 mmol/L (22-29); Chloride 97 mmol/L (98-107); Glucose 88 mg/dL (70-105); Potassium 3.9 mmol/L (3.5-5.1); Sodium 136 mmol/L (136-145)
[2021-07-05] MEDS: Polyethylene Glycol 3350 17 GM Packet PO SCH (09:36)
[2021-07-05] MEDS: Multivitamin W/ Minerals 1 TAB PO SCH (09:36)
[2021-07-05] MEDS: Senokot S 8.6-50 MG TAB PO SCH ×2 (09:36→20:57)
[2021-07-05] MEDS: guaiFENesin/DM ER PO SCH ×2 (09:37→20:57)
[2021-07-05] MEDS: Midodrine HCl 5 MG TAB PO SCH ×2 (09:37→10:31)
[2021-07-05] MEDS: Thiamine 100 MG TAB PO SCH (09:37)
[2021-07-05] MEDS: Benzonatate 100 MG CAP PO SCH ×3 (09:37→20:57)
[2021-07-05] MEDS: busPIRone HCl 10 MG TAB PO SCH ×2 (09:38→20:57)
[2021-07-05] MEDS: Folic Acid 1 MG TAB PO SCH (09:38)
[2021-07-05] MEDS: Simethicone Chewable 80 MG TAB PO SCH ×5 (09:39→22:57)
[2021-07-05] MEDS: Docusate Sodium 100 MG/10 ML UDCUP PO SCH ×2 (09:42→20:57)
[2021-07-05] MEDS: Zinc Oxide 20% Oint 30 GM TUBE TOP SCH ×2 (09:44→20:59)
[2021-07-05] MEDS: Nystatin Powder 15 GM BOT TOP SCH ×2 (09:44→20:59)
[2021-07-05] MEDS: Nicotine 14 MG PATCH TD SCH (10:18)
[2021-07-05] MEDS ORDERED: Midodrine HCl 5 MG TAB PO PRN (13:14)
[2021-07-05] MEDS: Scopolamine 1.5 mg/72 hour Patch TD SCH (15:21)
[2021-07-05] MEDS: Melatonin 3 MG TAB PO SCH (20:57)
[2021-07-06] MEDS: diphenhydrAMINE 50 MG/ML VIAL IVP PRN (04:13)
[2021-07-06 04:52] LABS: Anion Gap 15 mmol/L (10-20); BUN (Urea Nitrogen) 42 mg/dL (8.9-20.6); BUN/Creatinine Ratio 7.05; Calc. Creatinine Clearance 50 mL/min (70-130); Calcium 9.1 mg/dL (7.8-10.44); Carbon Dioxide 27 mmol/L (22-29); Chloride 96 mmol/L (98-107); Glucose 91 mg/dL (70-105); Phosphorus 4.5 mg/dL (2.3-4.7); Potassium 3.9 mmol/L (3.5-5.1); Sodium 134 mmol/L (136-145)
[2021-07-06] MEDS: Calcium Carbonate 500 MG ChewTAB PO PRN (05:37)
[2021-07-06] MEDS ORDERED: Heparin 10,000 UNITS/ 10 ML VIAL ONE (08:42)
[2021-07-06 09:36] LABS: Hemoglobin 10.5 g/dL (14.0-18.0); Mean Corpuscular HGB CONC 33.4 g/dL (32.0-36.0); Mean Corpuscular Hemoglobin 36.6 pg (27.0-31.0); Mean Platelet Volume 6.8 fL (7.4-10.4); Platelet Count 84 thou/uL (130-400); RBC Distribution Width 13.3 % (11.5-14.5); Red Blood Cell (RBC) Count 2.86 mill/uL (4.70-6.10); White Blood Cell (WBC) Count 5.7 thou/uL (4.8-10.8)
[2021-07-06 11:01] LABS: Band 3 % (5-11); Eosinophils 10 % (0-10); Lymphocytes 29 % (21-51); MDiff Complete? YES; Monocytes 18 % (0-10); Neutrophil 40 % (42-75); Platelet Morphology Comment Appears Decreased; Polychromasia SLIGHT = 2-3 cells (100X) (0-2/hpf)
[2021-07-06 14:05] LABS: Platelet Count 62 thou/uL (130-400)
[2021-07-06 14:14] LABS: FSP-Qualitative ABNORMAL (Normal)
[2021-07-06 14:15] LABS: INR-International Normal Ratio 2.6; Prothrombin Time 28.3 sec (12.0-14.7)
[2021-07-06 14:16] LABS: Fibrinogen 175 mg/dL (253-463)
[2021-07-06 14:23] LABS: FSP-Semiquantitative >=80 & <160 mcg/mL (Less than 5)
[2021-07-06 14:31] LABS: PTT Greater than 250.0 sec (22.9-36.1)
[2021-07-06] MEDS: busPIRone HCl 10 MG TAB PO SCH ×2 (17:32→20:30)
[2021-07-06] MEDS: Simethicone Chewable 80 MG TAB PO SCH ×3 (17:32→21:09)
[2021-07-06] MEDS: Docusate Sodium 100 MG/10 ML UDCUP PO SCH ×2 (17:32→20:33)
[2021-07-06] MEDS: Benzonatate 100 MG CAP PO SCH ×3 (17:32→20:30)
[2021-07-06] MEDS: guaiFENesin/DM ER PO SCH ×2 (17:33→20:33)
[2021-07-06] MEDS: Nystatin Powder 15 GM BOT TOP SCH ×2 (17:33→22:14)
[2021-07-06] MEDS: Folic Acid 1 MG TAB PO SCH (17:33)
[2021-07-06] MEDS: Multivitamin W/ Minerals 1 TAB PO SCH (17:33)
[2021-07-06] MEDS: Zinc Oxide 20% Oint 30 GM TUBE TOP SCH ×2 (17:34→22:14)
[2021-07-06] MEDS: Thiamine 100 MG TAB PO SCH (17:34)
[2021-07-06] MEDS: Senokot S 8.6-50 MG TAB PO SCH ×2 (17:38→20:34)
[2021-07-06] MEDS: Polyethylene Glycol 3350 17 GM Packet PO SCH (17:38)
[2021-07-06] MEDS: Melatonin 3 MG TAB PO SCH (20:32)
[2021-07-06] MEDS: Nicotine 14 MG PATCH TD SCH (21:10)
[2021-07-07] MEDS: diphenhydrAMINE 50 MG/ML VIAL IVP PRN ×2 (03:29→22:55)
[2021-07-07 06:13] LABS: Platelet Count 70 thou/uL (130-400)
[2021-07-07 06:16] LABS: INR-International Normal Ratio 1.8; Prothrombin Time 20.7 sec (12.0-14.7)
[2021-07-07 06:17] LABS: PTT 46.2 sec (22.9-36.1)
[2021-07-07 06:18] LABS: Fibrinogen 182 mg/dL (253-463)
[2021-07-07 06:29] LABS: Anion Gap 12 mmol/L (10-20); BUN (Urea Nitrogen) 30 mg/dL (8.9-20.6); BUN/Creatinine Ratio 6.62; Calc. Creatinine Clearance 66 mL/min (70-130); Calcium 8.8 mg/dL (7.8-10.44); Carbon Dioxide 30 mmol/L (22-29); Chloride 98 mmol/L (98-107); Glucose 97 mg/dL (70-105); Phosphorus 3.1 mg/dL (2.3-4.7); Potassium 3.6 mmol/L (3.5-5.1); Sodium 136 mmol/L (136-145)
[2021-07-07 06:40] LABS: FSP-Qualitative ABNORMAL (Normal); FSP-Semiquantitative >=20 & <40 mcg/mL (Less than 5)
[2021-07-07] MEDS: Nicotine 14 MG PATCH TD SCH ×2 (07:10→22:26)
[2021-07-07] MEDS: busPIRone HCl 10 MG TAB PO SCH ×3 (07:32→20:34)
[2021-07-07] MEDS: Simethicone Chewable 80 MG TAB PO SCH ×5 (07:34→22:25)
[2021-07-07] MEDS: Thiamine 100 MG TAB PO SCH ×2 (07:34→19:04)
[2021-07-07] MEDS: Benzonatate 100 MG CAP PO SCH ×4 (07:34→20:34)
[2021-07-07] MEDS: Senokot S 8.6-50 MG TAB PO SCH ×3 (07:34→20:34)
[2021-07-07] MEDS: Multivitamin W/ Minerals 1 TAB PO SCH ×2 (07:35→19:02)
[2021-07-07] MEDS: guaiFENesin/DM ER PO SCH ×3 (07:35→20:34)
[2021-07-07] MEDS: Folic Acid 1 MG TAB PO SCH ×2 (07:35→19:01)
[2021-07-07] MEDS: Polyethylene Glycol 3350 17 GM Packet PO SCH ×2 (07:36→19:03)
[2021-07-07] MEDS: Docusate Sodium 100 MG/10 ML UDCUP PO SCH ×3 (07:37→20:34)
[2021-07-07] MEDS: Nystatin Powder 15 GM BOT TOP SCH ×2 (07:39→22:25)
[2021-07-07] MEDS ORDERED: Heparin 10,000 UNITS/ 10 ML VIAL ONE (09:07)
[2021-07-07] MEDS ORDERED: ceFAZolin Sodium/D5W 2 GM in Premix Bag 1 BAG IVPB SCH (10:45)
[2021-07-07] MEDS ORDERED: CEFAZOLIN 2 GM in Sodium Chloride 0.9% 100 ML IVPB SCH (10:45)
[2021-07-07] MEDS: Zinc Oxide 20% Oint 30 GM TUBE TOP SCH ×3 (13:49→22:26)
[2021-07-07] MEDS: Melatonin 3 MG TAB PO SCH (20:39)
[2021-07-08] MEDS: diphenhydrAMINE 50 MG/ML VIAL IVP PRN ×2 (04:22→21:45)
[2021-07-08 06:25] LABS: Albumin 3.1 g/dL (3.5-5.0); Anion Gap 13 mmol/L (10-20); BUN (Urea Nitrogen) 40 mg/dL (8.9-20.6); BUN/Creatinine Ratio 7.62; Calc. Creatinine Clearance 50 mL/min (70-130); Calcium 9.3 mg/dL (7.8-10.44); Carbon Dioxide 28 mmol/L (22-29); Chloride 97 mmol/L (98-107); Glucose 105 mg/dL (70-105); Potassium 3.8 mmol/L (3.5-5.1); Sodium 134 mmol/L (136-145)
[2021-07-08 06:47] LABS: Hep B Core Total Ab Non-Reactive (NonReactive); Hep B Core Total Index 0.19 S/CO (0-0.79)
[2021-07-08 07:54] LABS: #Eosinphils 0.3 thou/uL (0.0-0.7); #Lymphocytes 1.2 thou/uL (1.20-3.40); #Neutrophils 8.5 thou/uL (1.40-6.50); %Basophils 0.4 % (0.0-1.0); %Eosinophils 2.6 % (0.0-10.0); %Lymphocytes 11.2 % (21.0-51.0); %Monocytes 8.9 % (0.0-10.0); %Neutrophils 76.9 % (42.0-75.0); Hemoglobin 10.8 g/dL (14.0-18.0); Mean Corpuscular HGB CONC 33.2 g/dL (32.0-36.0); Mean Corpuscular Hemoglobin 35.9 pg (27.0-31.0); Mean Platelet Volume 6.9 fL (7.4-10.4); Platelet Count 76 thou/uL (130-400); RBC Distribution Width 13.1 % (11.5-14.5)
[2021-07-08 07:55] LABS: Platelet Count 76 thou/uL (130-400)
[2021-07-08 08:15] LABS: ALT (SGPT) 23 U/L (8-55); AST (SGOT) 91 U/L (5-34); Albumin 3.1 g/dL (3.5-5.0); Alkaline Phosphatase 96 U/L (40-110); Anion Gap 14 mmol/L (10-20); BUN (Urea Nitrogen) 41 mg/dL (8.9-20.6); Bilirubin, Total 5.6 mg/dL (0.2-1.2); Calc. Creatinine Clearance 51 mL/min (70-130); Calcium 9.2 mg/dL (7.8-10.44); Carbon Dioxide 28 mmol/L (22-29); Chloride 97 mmol/L (98-107); Globulin 4.7 g/dL (2.4-3.5); Glucose 103 mg/dL (70-105); Protein, Total 7.8 g/dL (6.0-8.3); Sodium 135 mmol/L (136-145)
[2021-07-08 08:46] LABS: Fibrinogen 181 mg/dL (253-463); INR-International Normal Ratio 1.8; PTT 44.7 sec (22.9-36.1); Prothrombin Time 21.5 sec (12.0-14.7)
[2021-07-08 08:48] LABS: D-Dimer Test 11.86 *mcg/mL (0.27-0.43)
[2021-07-08 09:06] LABS: Band 12 % (5-11); Eosinophils 4 % (0-10); Lymphocytes 10 % (21-51); MDiff Complete? YES; Macrocytosis SLIGHT = 6-15 cells (100X) (0-5/hpf); Monocytes 8 % (0-10); Neutrophil 66 % (42-75); Platelet Morphology Comment Appears Decreased; Polychromasia SLIGHT = 2-3 cells (100X) (0-2/hpf)
[2021-07-08] MEDS: Simethicone Chewable 80 MG TAB PO SCH ×4 (09:27→21:35)
[2021-07-08] MEDS: busPIRone HCl 10 MG TAB PO SCH ×2 (09:28→21:19)
[2021-07-08] MEDS: Senokot S 8.6-50 MG TAB PO SCH ×2 (09:28→21:20)
[2021-07-08] MEDS: Nystatin Powder 15 GM BOT TOP SCH (09:28)
[2021-07-08] MEDS: Benzonatate 100 MG CAP PO SCH ×3 (09:28→21:19)
[2021-07-08] MEDS: Zinc Oxide 20% Oint 30 GM TUBE TOP SCH ×2 (09:28→21:24)
[2021-07-08] MEDS: Docusate Sodium 100 MG/10 ML UDCUP PO SCH ×2 (09:28→21:23)
[2021-07-08] MEDS: guaiFENesin/DM ER PO SCH ×2 (09:28→21:22)
[2021-07-08] MEDS ORDERED: Heparin 10,000 UNITS/ 10 ML VIAL ONE (09:34)
[2021-07-08 10:28] LABS: FSP-Qualitative ABNORMAL (Normal); FSP-Semiquantitative >=5 & <20 mcg/mL (Less than 5)
[2021-07-08] MEDS: Multivitamin W/ Minerals 1 TAB PO SCH (11:21)
[2021-07-08] MEDS: Polyethylene Glycol 3350 17 GM Packet PO SCH (11:21)
[2021-07-08] MEDS: Folic Acid 1 MG TAB PO SCH (11:21)
[2021-07-08] MEDS: Thiamine 100 MG TAB PO SCH (11:21)
[2021-07-08] MEDS ORDERED: ceFAZolin 2 GM/DEX 5% 100 ML BAG ONE (12:22)
[2021-07-08] MEDS: Scopolamine 1.5 mg/72 hour Patch TD SCH (16:48)
[2021-07-08] MEDS: Melatonin 3 MG TAB PO SCH (21:21)
[2021-07-08] MEDS: Nicotine 14 MG PATCH TD SCH (21:25)
[2021-07-09] MEDS: Nystatin Powder 15 GM BOT TOP SCH ×3 (02:58→23:29)
[2021-07-09] MEDS: diphenhydrAMINE 50 MG/ML VIAL IVP PRN ×2 (04:06→22:55)
[2021-07-09] MEDS ORDERED: Heparin 10,000 UNITS/ 10 ML VIAL ONE (08:37)
[2021-07-09] MEDS: Benzonatate 100 MG CAP PO SCH ×3 (09:32→21:20)
[2021-07-09] MEDS: Simethicone Chewable 80 MG TAB PO SCH ×4 (09:32→22:11)
[2021-07-09] MEDS: Senokot S 8.6-50 MG TAB PO SCH ×2 (09:32→21:20)
[2021-07-09 09:33] LABS: Factor VIII Test 302.3 % ACTIVE (56-157)
[2021-07-09] MEDS: Polyethylene Glycol 3350 17 GM Packet PO SCH (09:33)
[2021-07-09] MEDS: guaiFENesin/DM ER PO SCH ×2 (09:33→21:24)
[2021-07-09] MEDS: Multivitamin W/ Minerals 1 TAB PO SCH (09:33)
[2021-07-09] MEDS: Docusate Sodium 100 MG/10 ML UDCUP PO SCH ×3 (09:33→21:19)
[2021-07-09] MEDS: Folic Acid 1 MG TAB PO SCH (09:33)
[2021-07-09] MEDS: Thiamine 100 MG TAB PO SCH (09:33)
[2021-07-09] MEDS: busPIRone HCl 10 MG TAB PO SCH ×2 (09:33→21:20)
[2021-07-09] MEDS: Zinc Oxide 20% Oint 30 GM TUBE TOP SCH ×2 (09:34→23:30)
[2021-07-09] MEDS ORDERED: CEFAZOLIN 2 GM in Premix Bag 1 BAG IVPB SCH (11:00)
[2021-07-09] MEDS ORDERED: CEFAZOLIN 2 GM in Sodium Chloride 0.9% 100 ML IVPB SCH (11:15)
[2021-07-09 11:29] LABS: Albumin 3.1 g/dL (3.5-5.0); Anion Gap 13 mmol/L (10-20); BUN (Urea Nitrogen) 31 mg/dL (8.9-20.6); BUN/Creatinine Ratio 6.94; Calc. Creatinine Clearance 59 mL/min (70-130); Calcium 9.3 mg/dL (7.8-10.44); Carbon Dioxide 26 mmol/L (22-29); Chloride 97 mmol/L (98-107); Glucose 95 mg/dL (70-105); Phosphorus 3.2 mg/dL (2.3-4.7); Potassium 3.4 mmol/L (3.5-5.1); Sodium 133 mmol/L (136-145)
[2021-07-09 11:43] LABS: HBSAB Concentration Less than 8.00 mIU/mL; HBSAg Index 0.45 S/CO (0-0.99); Hep B Surf AB Non-Reactive (NonReactive); Hep B Surf Ag Non-Reactive S/CO (NonReactive)
[2021-07-09 14:14] VITALS: BMI 55.9
[2021-07-09] MEDS: Melatonin 3 MG TAB PO SCH (21:19)
[2021-07-09] MEDS: Nicotine 14 MG PATCH TD SCH (22:12)
[2021-07-10] MEDS ORDERED: Bupivacaine PF 0.5% 30 ML VIAL ONE (06:33)
[2021-07-10] MEDS ORDERED: Protamine Sulfate 50 MG/5 ML VIAL ONE (06:33)
[2021-07-10] MEDS ORDERED: Lidocaine 1% w/Epinephrine 1:100K 20 ML VIAL ONE (06:33)
[2021-07-10] MEDS ORDERED: Heparin 5,000 UNITS/ML VIAL ONE (06:33)
[2021-07-10] MEDS ORDERED: Fentanyl 100 MCG/2 ML VIAL ONE (07:05)
[2021-07-10] MEDS ORDERED: Propofol 500 MG/50 ML VIAL ONE (07:05)
[2021-07-10] MEDS ORDERED: ceFAZolin 2 GM/DEX 5% 100 ML BAG ONE (07:51)
[2021-07-10] MEDS ORDERED: Rocuronium Bromide 10 MG/ML (10ML VIAL) ONE (08:10)
[2021-07-10] MEDS ORDERED: PROPOFOL 200 MG/20 ML VIAL ONE (08:10)
[2021-07-10] MEDS ORDERED: Lidocaine 1% PF 5 ML VIAL ONE (08:10)
[2021-07-10] MEDS ORDERED: Ondansetron PF 4 MG/2 ML Vial ONE (08:10)
[2021-07-10] MEDS ORDERED: Succinylcholine 200 MG/10 ml SYRINGE FS ONE (08:10)
[2021-07-10] MEDS ORDERED: Dexamethasone 20 MG/5 ML VIAL ONE (08:10)
[2021-07-10] MEDS: Benzonatate 100 MG CAP PO SCH ×3 (08:25→21:54)
[2021-07-10] MEDS: Simethicone Chewable 80 MG TAB PO SCH ×4 (08:25→23:51)
[2021-07-10] MEDS: Nystatin Powder 15 GM BOT TOP SCH ×2 (08:26→22:44)
[2021-07-10] MEDS: Folic Acid 1 MG TAB PO SCH (08:26)
[2021-07-10] MEDS: guaiFENesin/DM ER PO SCH ×2 (08:26→21:54)
[2021-07-10] MEDS: Multivitamin W/ Minerals 1 TAB PO SCH (08:26)
[2021-07-10] MEDS: busPIRone HCl 10 MG TAB PO SCH ×2 (08:26→21:56)
[2021-07-10] MEDS: Docusate Sodium 100 MG/10 ML UDCUP PO SCH ×2 (08:26→22:40)
[2021-07-10] MEDS: Polyethylene Glycol 3350 17 GM Packet PO SCH (08:26)
[2021-07-10] MEDS: Thiamine 100 MG TAB PO SCH (08:27)
[2021-07-10] MEDS: Senokot S 8.6-50 MG TAB PO SCH ×2 (08:27→21:54)
[2021-07-10] MEDS: Zinc Oxide 20% Oint 30 GM TUBE TOP SCH ×2 (08:27→22:43)
[2021-07-10] MEDS ORDERED: SUGAMMADEX SODIUM 200 MG/2 ML VIAL ONE (08:31)
[2021-07-10] MEDS ORDERED: Heparin 10,000 UNITS/ 10 ML VIAL ONE (09:14)
[2021-07-10] MEDS ORDERED: Promethazine HCl 25 MG/ML VIAL IVPB PRN (09:42)
[2021-07-10] MEDS ORDERED: Promethazine HCl 25 MG/ML VIAL IM PRN (09:42)
[2021-07-10] MEDS ORDERED: Ondansetron HCl/PF 4 MG/2 ML Vial IVP PRN (09:42)
[2021-07-10] MEDS ORDERED: Promethazine HCl 25 MG/ML VIAL ONE (10:00)
[2021-07-10 12:10] LABS: SARS-CoV-2 PCR by NAA Not Detected (NotDetected)
[2021-07-10] MEDS: Acetaminophen 325 MG TAB PO PRN (13:21)
[2021-07-10 13:35] LABS: Albumin 3.2 g/dL (3.5-5.0); Anion Gap 13 mmol/L (10-20); BUN (Urea Nitrogen) 48 mg/dL (8.9-20.6); BUN/Creatinine Ratio 10.32; Calc. Creatinine Clearance 56 mL/min (70-130); Calcium 9.5 mg/dL (7.8-10.44); Carbon Dioxide 28 mmol/L (22-29); Chloride 97 mmol/L (98-107); Glucose 112 mg/dL (70-105); Phosphorus 3.8 mg/dL (2.3-4.7); Potassium 3.8 mmol/L (3.5-5.1); Sodium 134 mmol/L (136-145)
[2021-07-10] MEDS: Melatonin 3 MG TAB PO SCH (21:55)
[2021-07-10] MEDS: Nicotine 14 MG PATCH TD SCH (21:59)
[2021-07-10] MEDS: diphenhydrAMINE 50 MG/ML VIAL IVP PRN (23:51)
[2021-07-11] MEDS: diphenhydrAMINE 50 MG/ML VIAL IVP PRN (04:42)
[2021-07-11 06:01] VITALS: BP 114/68; TEMP 98.1
[2021-07-11] MEDS: Simethicone Chewable 80 MG TAB PO SCH ×2 (09:28→11:06)
[2021-07-11] MEDS: Benzonatate 100 MG CAP PO SCH ×2 (09:28→14:47)
[2021-07-11] MEDS: Senokot S 8.6-50 MG TAB PO SCH (09:29)
[2021-07-11] MEDS: guaiFENesin/DM ER PO SCH (09:29)
[2021-07-11] MEDS: Docusate Sodium 100 MG/10 ML UDCUP PO SCH (09:29)
[2021-07-11] MEDS: Folic Acid 1 MG TAB PO SCH (09:29)
[2021-07-11] MEDS: Nystatin Powder 15 GM BOT TOP SCH (09:29)
[2021-07-11] MEDS: Polyethylene Glycol 3350 17 GM Packet PO SCH (09:29)
[2021-07-11] MEDS: Thiamine 100 MG TAB PO SCH (09:29)
[2021-07-11] MEDS: Multivitamin W/ Minerals 1 TAB PO SCH (09:29)
[2021-07-11] MEDS: Zinc Oxide 20% Oint 30 GM TUBE TOP SCH (09:29)
[2021-07-11] MEDS ORDERED: Heparin 10,000 UNITS/ 10 ML VIAL ONE (10:21)
[2021-07-11] MEDS: busPIRone HCl 10 MG TAB PO SCH (10:27)
== END 2021-07-11 15:31 | disposition home health service (06) | DRG 579 ==
LOC: ERS 07:59 → ERHOLD 11:34 → 2NO 18:52 → SJJU 06-15 11:58 → 2NO 06-19 22:52 → T4-B 06-22 21:57
PROVIDERS: ADMIT Family Medicine; ATTEND Family Medicine
PROC: HZ2ZZZZ Detoxification Services for Substance Abuse Treatment (ICD-10-PCS; principal; 2021-06-10)
PROC: 0JH60XZ Insertion of Tunneled Vascular Access Device into Chest Subcutaneous Tissue and Fascia, Open Approach (ICD-10-PCS; 2021-06-24)
PROC: 02HV33Z Insertion of Infusion Device into Superior Vena Cava, Percutaneous Approach (ICD-10-PCS; 2021-06-24)
PROC: B548ZZA Ultrasonography of Superior Vena Cava, Guidance (ICD-10-PCS; 2021-06-24)
PROC: B5181ZA Fluoroscopy of Superior Vena Cava using Low Osmolar Contrast, Guidance (ICD-10-PCS; 2021-06-24)
PROC: 5A1D70Z Performance of Urinary Filtration, Intermittent, Less than 6 Hours Per Day (ICD-10-PCS; 2021-06-25)
PROC: 031B0ZF Bypass Right Radial Artery to Lower Arm Vein, Open Approach (ICD-10-PCS; 2021-07-10)
DX: M79.3 Panniculitis, unspecified (principal); K76.7 Hepatorenal syndrome; J69.0 Pneumonitis due to inhalation of food and vomit; N18.6 End stage renal disease; D65 Disseminated intravascular coagulation [defibrination syndrome]; R45.851 Suicidal ideations; E87.1 Hypo-osmolality and hyponatremia; Z68.43 Body mass index [BMI] 50.0-59.9, adult; F10.139 Alcohol abuse with withdrawal, unspecified; N17.9 Acute kidney failure, unspecified; G83.4 Cauda equina syndrome; R04.2 Hemoptysis; F32.9 Major depressive disorder, single episode, unspecified; F41.1 Generalized anxiety disorder; E87.6 Hypokalemia; E66.01 Morbid (severe) obesity due to excess calories; F41.0 Panic disorder [episodic paroxysmal anxiety]; R53.81 Other malaise; F12.11 Cannabis abuse, in remission; K70.10 Alcoholic hepatitis without ascites; Y90.6 Blood alcohol level of 120-199 mg/100 ml; Z20.822 Contact with and (suspected) exposure to COVID-19; D63.1 Anemia in chronic kidney disease; R94.31 Abnormal electrocardiogram [ECG] [EKG]; D53.9 Nutritional anemia, unspecified; E83.42 Hypomagnesemia; R11.2 Nausea with vomiting, unspecified; I95.9 Hypotension, unspecified; B37.2 Candidiasis of skin and nail; E83.39 Other disorders of phosphorus metabolism; G47.00 Insomnia, unspecified; Z98.890 Other specified postprocedural states
CPT/HCPCS: 36415; 36416; 71045; 76705; 80048; 80053; 80061; 80069; 80074; 80202; 80307; 81001; 82105; 82140; 82248; 82390; 82553; 82570; 82607; 82728; 82746; 83516; 83540; 83550; 83605; 83615; 83690; 83735; 83880; 83935; 84100; 84133; 84134; 84156; 84300; 84443; 84484; 84540; 85007; 85025; 85027; 85049; 85060; 85240; 85300; 85362; 85379; 85384; 85520; 85610; 85730; 86038; 86225; 86704; 86706; 86850; 86900; 86901; 87040; 87340; 90935; 93005; 93010; 93306; 93970; 96374; 96375; C1751; C1752; C9113; G0257; J0692; J0696; J1100; J1200; J1644; J1650; J1815; J1940; J2060; J2185; J2354; J2405; J2550; J2704; J2720; J3010; J3370; J3410; J3475; J3480; J3490; J7050; P9047; Q0162; S0020; U0003; U0005

== ENCOUNTER 2021-07-22 22:27 | Emergency (ER) | payer MEDICARE, MEDICAID ==
[2021-07-22 23:20] LABS: #Basophils 0.1 thou/uL (0.0-0.2); #Eosinphils 0.1 thou/uL (0.0-0.7); #Lymphocytes 1.5 thou/uL (1.20-3.40); #Monocytes 0.9 thou/uL (0.11-0.59); #Neutrophils 8.5 thou/uL (1.40-6.50); %Basophils 0.5 % (0.0-1.0); %Eosinophils 0.9 % (0.0-10.0); %Lymphocytes 13.2 % (21.0-51.0); %Monocytes 8.4 % (0.0-10.0); Hemoglobin 9.6 g/dL (14.0-18.0); Mean Corpuscular HGB CONC 34.8 g/dL (32.0-36.0); Mean Corpuscular Hemoglobin 35.8 pg (27.0-31.0); Mean Platelet Volume 8.2 fL (7.4-10.4); Platelet Count 81 thou/uL (130-400); RBC Distribution Width 12.7 % (11.5-14.5); Red Blood Cell (RBC) Count 2.67 mill/uL (4.70-6.10)
[2021-07-22 23:37] LABS: ALT (SGPT) 22 U/L (8-55); AST (SGOT) 87 U/L (5-34); Albumin 2.9 g/dL (3.5-5.0); Alkaline Phosphatase 148 U/L (40-110); Anion Gap 14 mmol/L (10-20); BUN (Urea Nitrogen) 35 mg/dL (8.9-20.6); Bilirubin, Total 4.3 mg/dL (0.2-1.2); Calc. Creatinine Clearance 0 mL/min (70-130); Calcium 8.7 mg/dL (7.8-10.44); Carbon Dioxide 26 mmol/L (22-29); Chloride 93 mmol/L (98-107); Globulin 4.8 g/dL (2.4-3.5); Glucose 104 mg/dL (70-105); Lipase 199 U/L (8-78); Potassium 3.2 mmol/L (3.5-5.1); Protein, Total 7.7 g/dL (6.0-8.3); Sodium 130 mmol/L (136-145)
[2021-07-23 02:32] LABS: Lactic Acid 2.1 mmol/L (0.5-2.2)
== END 2021-07-23 02:33 | disposition home or self-care (01) ==
LOC: ERS 22:27
DX: L03.311 Cellulitis of abdominal wall (principal); E66.9 Obesity, unspecified
CPT/HCPCS: 36415; 80053; 83605; 83690; 85025; 93005

== ENCOUNTER 2021-07-31 13:34 | Inpatient (IN) | payer MEDICARE, MEDICAID ==
[2021-07-31 14:51] LABS: Hemoglobin 9.8 g/dL (14.0-18.0); Mean Corpuscular HGB CONC 33.9 g/dL (32.0-36.0); Mean Corpuscular Hemoglobin 35.1 pg (27.0-31.0); Mean Platelet Volume 8.7 fL (7.4-10.4); Platelet Count 58 thou/uL (130-400); RBC Distribution Width 13.1 % (11.5-14.5); Red Blood Cell (RBC) Count 2.79 mill/uL (4.70-6.10); White Blood Cell (WBC) Count 5.7 thou/uL (4.8-10.8)
[2021-07-31 14:54] LABS: #Basophils 0.1 thou/uL (0.0-0.2); #Eosinphils 0.2 thou/uL (0.0-0.7); #Lymphocytes 1.7 thou/uL (1.20-3.40); #Monocytes 0.8 thou/uL (0.11-0.59); %Basophils 1.1 % (0.0-1.0); %Eosinophils 3.9 % (0.0-10.0); %Lymphocytes 29.2 % (21.0-51.0); %Monocytes 13.8 % (0.0-10.0); %Neutrophils 51.9 % (42.0-75.0)
[2021-07-31 15:07] LABS: Platelet Morphology Comment Appears Decreased; RBC Morphology Normal
[2021-07-31 15:09] LABS: ALT (SGPT) 27 U/L (8-55); AST (SGOT) 79 U/L (5-34); Albumin 2.8 g/dL (3.5-5.0); Alkaline Phosphatase 123 U/L (40-110); Anion Gap 15 mmol/L (10-20); BUN (Urea Nitrogen) 27 mg/dL (8.9-20.6); Bilirubin, Total 3.7 mg/dL (0.2-1.2); Calc. Creatinine Clearance 0 mL/min (70-130); Calcium 9.2 mg/dL (7.8-10.44); Carbon Dioxide 31 mmol/L (22-29); Chloride 93 mmol/L (98-107); Globulin 4.5 g/dL (2.4-3.5); Glucose 97 mg/dL (70-105); Protein, Total 7.3 g/dL (6.0-8.3); Sodium 136 mmol/L (136-145)
[2021-07-31 15:14] LABS: Potassium 2.8 mmol/L (3.5-5.1)
[2021-07-31] MEDS ORDERED: Potassium Chloride 20 MEQ TAB ONE (15:18)
[2021-07-31] MEDS ORDERED: Zinc Oxide 20% Oint 30 GM TUBE TOP PRN (17:06)
[2021-07-31] MEDS ORDERED: Nystatin Powder 15 GM BOT TOP PRN (17:06)
[2021-07-31] MEDS ORDERED: diphenhydrAMINE 50 MG CAP PO PRN (17:06)
[2021-07-31] MEDS ORDERED: Vancomycin HCl 1.25 GM in Sodium Chloride 0.9% 250 ML 250 ML IVPB SCH (19:30)
[2021-07-31] MEDS ORDERED: Vancomycin 1 GM in Premix Bag 1 BAG IVPB SCH (19:30)
[2021-07-31] MEDS ORDERED: HOLD VANCOMYCIN FOR LEVEL >20 FS SCH (19:30)
[2021-07-31] MEDS ORDERED: Vancomycin HCl 750 MG in Sodium Chloride 0.9% 250 ML 250 ML IVPB SCH (19:30)
[2021-07-31] MEDS ORDERED: Vancomycin Sliding Scale 1 EACH FS ONE (19:30)
[2021-07-31] MEDS ORDERED: Vancomycin HCl 1.5 GM in Sodium Chloride 0.9% 250 ML 300 ML IVPB SCH (19:30)
[2021-07-31 19:31] VITALS: BMI 54.6
[2021-07-31] MEDS ORDERED: VANCOMYCIN 2 GRAM/400 ML BAG 2 GM in Premix Bag 1 BAG IVPB SCH (19:45)
[2021-07-31] MEDS ORDERED: Calcium Carbonate 500 MG ChewTAB PO PRN (20:45)
[2021-07-31] MEDS ORDERED: Midodrine HCl 5 MG TAB PO PRN (20:45)
[2021-07-31] MEDS ORDERED: Benzonatate 100 MG CAP PO PRN (20:45)
[2021-07-31] MEDS ORDERED: guaiFENesin/DM ER PO PRN (20:45)
[2021-07-31] MEDS ORDERED: Nystatin Powder 15 GM BOT TOP SCH (21:00)
[2021-07-31] MEDS: CEFEPIME HCL IN DEXTROSE 5 % 1 GM in Premix Bag 1 BAG IVPB SCH (21:39)
[2021-07-31] MEDS: Senokot S 8.6-50 MG TAB PO SCH (21:40)
[2021-07-31] MEDS: Docusate Sodium 100 MG/10 ML UDCUP PO SCH (21:40)
[2021-07-31] MEDS: Zinc Oxide 20% Oint 30 GM TUBE TOP SCH (21:41)
[2021-07-31] MEDS: Gabapentin 100 MG CAP PO SCH (21:41)
[2021-07-31] MEDS: busPIRone HCl 10 MG TAB PO SCH (21:42)
[2021-07-31] MEDS ORDERED: Simethicone Chewable 80 MG TAB PO PRN (21:51)
[2021-07-31] MEDS: Nicotine 14 MG PATCH TOP SCH (22:47)
[2021-07-31] MEDS: hydrOXYzine 25 MG TAB PO SCH (22:47)
[2021-08-01 05:06] LABS: #Eosinphils 0.2 thou/uL (0.0-0.7); #Lymphocytes 2.2 thou/uL (1.20-3.40); #Monocytes 0.7 thou/uL (0.11-0.59); #Neutrophils 2.7 thou/uL (1.40-6.50); %Basophils 0.7 % (0.0-1.0); %Eosinophils 4.1 % (0.0-10.0); %Lymphocytes 36.8 % (21.0-51.0); %Monocytes 12.1 % (0.0-10.0); %Neutrophils 46.4 % (42.0-75.0); Hemoglobin 8.4 g/dL (14.0-18.0); Mean Corpuscular HGB CONC 32.8 g/dL (32.0-36.0); Mean Corpuscular Hemoglobin 34.2 pg (27.0-31.0); Mean Platelet Volume 8.3 fL (7.4-10.4); Platelet Count 61 thou/uL (130-400); RBC Distribution Width 13.1 % (11.5-14.5); Red Blood Cell (RBC) Count 2.44 mill/uL (4.70-6.10); White Blood Cell (WBC) Count 5.9 thou/uL (4.8-10.8)
[2021-08-01 05:21] LABS: ALT (SGPT) 22 U/L (8-55); AST (SGOT) 70 U/L (5-34); Albumin 2.4 g/dL (3.5-5.0); Alkaline Phosphatase 117 U/L (40-110); Anion Gap 12 mmol/L (10-20); BUN (Urea Nitrogen) 29 mg/dL (8.9-20.6); Bilirubin, Total 2.7 mg/dL (0.2-1.2); Calc. Creatinine Clearance 66 mL/min (70-130); Calcium 8.5 mg/dL (7.8-10.44); Carbon Dioxide 28 mmol/L (22-29); Chloride 94 mmol/L (98-107); Glucose 86 mg/dL (70-105); Protein, Total 6.4 g/dL (6.0-8.3); Sodium 131 mmol/L (136-145)
[2021-08-01] MEDS: hydrOXYzine 25 MG TAB PO SCH ×4 (07:16→23:25)
[2021-08-01] MEDS: Calamine/Zinc Oxide 177 ML LOTION TP SCH ×2 (08:56→21:41)
[2021-08-01] MEDS: Nystatin Powder 15 GM BOT TOP SCH ×2 (08:58→21:45)
[2021-08-01] MEDS ORDERED: Zinc Oxide 20% Oint 30 GM TUBE TOP SCH (09:00)
[2021-08-01] MEDS: Polyethylene Glycol 3350 17 GM Packet PO SCH ×4 (09:00→10:42)
[2021-08-01] MEDS: Multivitamin W/ Minerals 1 TAB PO SCH (09:01)
[2021-08-01] MEDS: Senokot S 8.6-50 MG TAB PO SCH ×2 (09:01→22:06)
[2021-08-01] MEDS: Folic Acid 1 MG TAB PO SCH (09:01)
[2021-08-01] MEDS: busPIRone HCl 10 MG TAB PO SCH ×2 (09:01→21:40)
[2021-08-01] MEDS: Docusate Sodium 100 MG/10 ML UDCUP PO SCH ×2 (09:01→21:39)
[2021-08-01] MEDS: Thiamine 100 MG TAB PO SCH (09:02)
[2021-08-01] MEDS: Furosemide 40 MG TAB PO SCH (09:02)
[2021-08-01] MEDS: Spironolactone 100 MG TAB PO SCH (09:06)
[2021-08-01 09:14] LABS: INR-International Normal Ratio 1.5; Prothrombin Time 18.2 sec (12.0-14.7)
[2021-08-01 09:15] LABS: PTT 39.9 sec (22.9-36.1)
[2021-08-01 09:23] LABS: Vancomycin, Random 22.1 ug/mL (See Comment)
[2021-08-01] MEDS: Zinc Oxide 20% Oint 30 GM TUBE TOP SCH ×3 (10:42→22:10)
[2021-08-01 14:29] LABS: SARS-CoV-2 PCR by NAA Not Detected (NotDetected)
[2021-08-01] MEDS ORDERED: Melatonin 3 MG TAB PO SCH (17:00)
[2021-08-01] MEDS: CEFEPIME HCL IN DEXTROSE 5 % 1 GM in Premix Bag 1 BAG IVPB SCH (21:38)
[2021-08-01] MEDS: Gabapentin 100 MG CAP PO SCH (21:39)
[2021-08-01] MEDS: diphenhydrAMINE 25 MG CAP PO SCH (21:45)
[2021-08-01] MEDS: Nicotine 14 MG PATCH TOP SCH (22:06)
[2021-08-02 05:26] LABS: #Eosinphils 0.2 thou/uL (0.0-0.7); #Lymphocytes 2.2 thou/uL (1.20-3.40); #Monocytes 0.7 thou/uL (0.11-0.59); #Neutrophils 3.4 thou/uL (1.40-6.50); %Basophils 0.5 % (0.0-1.0); %Eosinophils 3.7 % (0.0-10.0); %Lymphocytes 33.8 % (21.0-51.0); %Monocytes 10.3 % (0.0-10.0); %Neutrophils 51.7 % (42.0-75.0); Hemoglobin 8.7 g/dL (14.0-18.0); Mean Corpuscular HGB CONC 33.6 g/dL (32.0-36.0); Mean Corpuscular Hemoglobin 34.4 pg (27.0-31.0); Mean Platelet Volume 8.2 fL (7.4-10.4); Platelet Count 64 thou/uL (130-400); RBC Distribution Width 12.9 % (11.5-14.5); Red Blood Cell (RBC) Count 2.52 mill/uL (4.70-6.10); White Blood Cell (WBC) Count 6.5 thou/uL (4.8-10.8)
[2021-08-02 05:47] LABS: ALT (SGPT) 23 U/L (8-55); AST (SGOT) 66 U/L (5-34); Albumin 2.5 g/dL (3.5-5.0); Alkaline Phosphatase 134 U/L (40-110); Anion Gap 12 mmol/L (10-20); BUN (Urea Nitrogen) 32 mg/dL (8.9-20.6); Bilirubin, Total 2.7 mg/dL (0.2-1.2); Calc. Creatinine Clearance 65 mL/min (70-130); Calcium 8.7 mg/dL (7.8-10.44); Carbon Dioxide 28 mmol/L (22-29); Chloride 94 mmol/L (98-107); Globulin 4.1 g/dL (2.4-3.5); Glucose 84 mg/dL (70-105); Protein, Total 6.6 g/dL (6.0-8.3); Sodium 131 mmol/L (136-145)
[2021-08-02 05:52] LABS: Potassium 2.9 mmol/L (3.5-5.1)
[2021-08-02] MEDS: hydrOXYzine 25 MG TAB PO SCH ×3 (06:47→17:22)
[2021-08-02 07:42] LABS: Magnesium 1.8 mg/dL (1.6-2.6); Phosphorus 4.8 mg/dL (2.3-4.7)
[2021-08-02] MEDS: Potassium Chloride 20 MEQ in Premix Bag 1 BAG IVPB SCH ×2 (08:20→09:01)
[2021-08-02] MEDS: Potassium Chloride 20 MEQ TAB PO SCH ×2 (08:57→13:50)
[2021-08-02] MEDS: Senokot S 8.6-50 MG TAB PO SCH ×2 (08:57→21:16)
[2021-08-02] MEDS: Spironolactone 100 MG TAB PO SCH (08:58)
[2021-08-02] MEDS: busPIRone HCl 10 MG TAB PO SCH ×2 (08:58→21:14)
[2021-08-02] MEDS: Folic Acid 1 MG TAB PO SCH (08:58)
[2021-08-02] MEDS: Multivitamin W/ Minerals 1 TAB PO SCH (08:58)
[2021-08-02] MEDS: Furosemide 40 MG TAB PO SCH (08:58)
[2021-08-02] MEDS: Polyethylene Glycol 3350 17 GM Packet PO SCH (08:58)
[2021-08-02] MEDS: Nystatin Powder 15 GM BOT TOP SCH ×2 (08:59→21:21)
[2021-08-02] MEDS: Calamine/Zinc Oxide 177 ML LOTION TP SCH ×2 (09:00→21:30)
[2021-08-02] MEDS: Docusate Sodium 100 MG/10 ML UDCUP PO SCH ×2 (09:00→21:28)
[2021-08-02] MEDS: Thiamine 100 MG TAB PO SCH (09:00)
[2021-08-02] MEDS: Zinc Oxide 20% Oint 30 GM TUBE TOP SCH ×3 (09:01→21:20)
[2021-08-02 14:42] LABS: Anion Gap 17 mmol/L (10-20); BUN (Urea Nitrogen) 35 mg/dL (8.9-20.6); Calc. Creatinine Clearance 64 mL/min (70-130); Calcium 8.8 mg/dL (7.8-10.44); Carbon Dioxide 23 mmol/L (22-29); Chloride 95 mmol/L (98-107); Glucose 118 mg/dL (70-105); Potassium 3.5 mmol/L (3.5-5.1); Sodium 131 mmol/L (136-145)
[2021-08-02] MEDS: cefTRIAXone\\ROCEPHIN 2 GM in Sodium Chloride 0.9% 100 ML IVPB SCH (16:45)
[2021-08-02 17:54] LABS: Body Surface Area 2.67
[2021-08-02] MEDS ORDERED: Rifaximin 550 MG TAB PO SCH (18:00)
[2021-08-02 18:15] LABS: 24 Hr Creatinine 1535.38 mg/24 hr (950-2490); Creatinine, Urine 122.83 mg/dL (63-166)
[2021-08-02 18:20] LABS: Creatinine, Urine 122.83 mg/dL (63-166)
[2021-08-02] MEDS: Melatonin 3 MG TAB PO SCH (21:14)
[2021-08-02] MEDS: Nicotine 14 MG PATCH TOP SCH (21:16)
[2021-08-02] MEDS: Gabapentin 100 MG CAP PO SCH (21:16)
[2021-08-02] MEDS: diphenhydrAMINE 25 MG CAP PO SCH (21:28)
[2021-08-03] MEDS: hydrOXYzine 25 MG TAB PO SCH ×4 (00:05→18:15)
[2021-08-03 04:57] LABS: #Eosinphils 0.2 thou/uL (0.0-0.7); #Lymphocytes 1.8 thou/uL (1.20-3.40); #Monocytes 0.6 thou/uL (0.11-0.59); #Neutrophils 3.4 thou/uL (1.40-6.50); %Basophils 0.3 % (0.0-1.0); %Eosinophils 3.5 % (0.0-10.0); %Lymphocytes 30.1 % (21.0-51.0); %Monocytes 10.3 % (0.0-10.0); %Neutrophils 55.9 % (42.0-75.0); Hemoglobin 8.8 g/dL (14.0-18.0); Mean Corpuscular HGB CONC 32.4 g/dL (32.0-36.0); Mean Corpuscular Hemoglobin 33.3 pg (27.0-31.0); Mean Platelet Volume 8.2 fL (7.4-10.4); Platelet Count 70 thou/uL (130-400); RBC Distribution Width 12.9 % (11.5-14.5); Red Blood Cell (RBC) Count 2.63 mill/uL (4.70-6.10); White Blood Cell (WBC) Count 6.1 thou/uL (4.8-10.8)
[2021-08-03 05:26] LABS: ALT (SGPT) 21 U/L (8-55); AST (SGOT) 61 U/L (5-34); Albumin 2.4 g/dL (3.5-5.0); Alkaline Phosphatase 127 U/L (40-110); Anion Gap 12 mmol/L (10-20); BUN (Urea Nitrogen) 34 mg/dL (8.9-20.6); Bilirubin, Total 2.9 mg/dL (0.2-1.2); Calc. Creatinine Clearance 68 mL/min (70-130); Calcium 8.7 mg/dL (7.8-10.44); Carbon Dioxide 26 mmol/L (22-29); Chloride 98 mmol/L (98-107); Globulin 4.2 g/dL (2.4-3.5); Glucose 92 mg/dL (70-105); Magnesium 1.8 mg/dL (1.6-2.6); Phosphorus 4.2 mg/dL (2.3-4.7); Potassium 3.6 mmol/L (3.5-5.1); Protein, Total 6.6 g/dL (6.0-8.3); Sodium 132 mmol/L (136-145)
[2021-08-03] MEDS ORDERED: Torsemide 10 MG TAB PO SCH (09:00)
[2021-08-03] MEDS: Multivitamin W/ Minerals 1 TAB PO SCH (10:22)
[2021-08-03] MEDS: busPIRone HCl 10 MG TAB PO SCH ×2 (10:23→22:05)
[2021-08-03] MEDS: Thiamine 100 MG TAB PO SCH (10:23)
[2021-08-03] MEDS: Calamine/Zinc Oxide 177 ML LOTION TP SCH ×3 (10:24→22:08)
[2021-08-03] MEDS: Folic Acid 1 MG TAB PO SCH (10:24)
[2021-08-03] MEDS: Spironolactone 100 MG TAB PO SCH (10:24)
[2021-08-03] MEDS: Docusate Sodium 100 MG/10 ML UDCUP PO SCH ×2 (10:25→22:06)
[2021-08-03] MEDS: Nystatin Powder 15 GM BOT TOP SCH ×3 (10:25→22:09)
[2021-08-03] MEDS: Senokot S 8.6-50 MG TAB PO SCH ×2 (10:25→22:08)
[2021-08-03] MEDS: Polyethylene Glycol 3350 17 GM Packet PO SCH (10:25)
[2021-08-03] MEDS: Zinc Oxide 20% Oint 30 GM TUBE TOP SCH ×3 (15:31→18:22)
[2021-08-03] MEDS: cefTRIAXone\\ROCEPHIN 2 GM in Sodium Chloride 0.9% 100 ML IVPB SCH (17:18)
[2021-08-03] MEDS: diphenhydrAMINE 25 MG CAP PO SCH (22:06)
[2021-08-03] MEDS: Gabapentin 100 MG CAP PO SCH (22:07)
[2021-08-03] MEDS: Melatonin 3 MG TAB PO SCH (22:07)
[2021-08-03] MEDS: Nicotine 14 MG PATCH TOP SCH (22:12)
[2021-08-04] MEDS: hydrOXYzine 25 MG TAB PO SCH ×2 (00:10→05:53)
[2021-08-04] MEDS: Zinc Oxide 20% Oint 30 GM TUBE TOP SCH (00:10)
[2021-08-04 04:35] VITALS: BP 113/56; TEMP 97.6
[2021-08-04] MEDS ORDERED: diphenhydrAMINE 10 MG in Sodium Chloride 0.9% 50 ML IVPB SCH (07:30)
[2021-08-04] MEDS ORDERED: Cephalexin 250 MG CAP PO SCH (08:48)
== END 2021-08-04 07:45 | disposition home or self-care (01) | DRG 606 ==
LOC: ERS 13:34 → 2NO 16:37 → OBSVTOIN 08-03 10:47
PROVIDERS: ADMIT Family Medicine; ATTEND Family Medicine
PROC: 5A1D70Z Performance of Urinary Filtration, Intermittent, Less than 6 Hours Per Day (ICD-10-PCS; principal; 2021-08-04)
DX: M79.3 Panniculitis, unspecified (principal); N18.6 End stage renal disease; K76.7 Hepatorenal syndrome; G83.4 Cauda equina syndrome; N17.9 Acute kidney failure, unspecified; Z68.43 Body mass index [BMI] 50.0-59.9, adult; L03.311 Cellulitis of abdominal wall; Z20.822 Contact with and (suspected) exposure to COVID-19; F32.A Depression, unspecified; F41.1 Generalized anxiety disorder; E66.01 Morbid (severe) obesity due to excess calories; F12.10 Cannabis abuse, uncomplicated; F17.210 Nicotine dependence, cigarettes, uncomplicated; R94.31 Abnormal electrocardiogram [ECG] [EKG]; D53.9 Nutritional anemia, unspecified; D69.6 Thrombocytopenia, unspecified; E87.6 Hypokalemia; R32 Unspecified urinary incontinence; K70.10 Alcoholic hepatitis without ascites; F10.20 Alcohol dependence, uncomplicated; Z79.899 Other long term (current) drug therapy; Z74.01 Bed confinement status; Z99.2 Dependence on renal dialysis
CPT/HCPCS: 36415; 36416; 76705; 80053; 80202; 82570; 82575; 83735; 84100; 84145; 84156; 85025; 85610; 85730; 86140; 87040; 93005; 93010; 96374; 96375; 96376; G0378; J0692; J0696; J3370; J3480; J3490; U0003; U0005

== ENCOUNTER 2021-08-19 11:06 | Inpatient (IN) | payer OTHER, MEDICAID ==
[~2021-08-19 11:06] MED LIST: Heparin 10,000 UNITS/ 10 ML VIAL ONE
[2021-08-19 13:50] LABS: #Eosinphils 0.1 thou/uL (0.0-0.7); #Lymphocytes 1.7 thou/uL (1.20-3.40); #Monocytes 0.5 thou/uL (0.11-0.59); #Neutrophils 3.4 thou/uL (1.40-6.50); %Basophils 0.8 % (0.0-1.0); %Lymphocytes 29.2 % (21.0-51.0); %Monocytes 9.3 % (0.0-10.0); %Neutrophils 58.7 % (42.0-75.0); Hemoglobin 10.3 g/dL (14.0-18.0); Mean Corpuscular HGB CONC 32.4 g/dL (32.0-36.0); Mean Corpuscular Hemoglobin 32.3 pg (27.0-31.0); Mean Corpuscular Volume 99.6 fL (78.0-98.0); Mean Platelet Volume 9.3 fL (7.4-10.4); Platelet Count 71 thou/uL (130-400); RBC Distribution Width 12.7 % (11.5-14.5); Red Blood Cell (RBC) Count 3.19 mill/uL (4.70-6.10); White Blood Cell (WBC) Count 5.8 thou/uL (4.8-10.8)
[2021-08-19 14:07] LABS: ALT (SGPT) 23 U/L (8-55); AST (SGOT) 57 U/L (5-34); Albumin 2.9 g/dL (3.5-5.0); Alkaline Phosphatase 151 U/L (40-110); Anion Gap 15 mmol/L (10-20); BUN (Urea Nitrogen) 39 mg/dL (8.9-20.6); Bilirubin, Total 2.6 mg/dL (0.2-1.2); Calc. Creatinine Clearance 0 mL/min (70-130); Calcium 9.2 mg/dL (7.8-10.44); Carbon Dioxide 27 mmol/L (22-29); Chloride 97 mmol/L (98-107); Globulin 5.2 g/dL (2.4-3.5); Glucose 109 mg/dL (70-105); Potassium 3.9 mmol/L (3.5-5.1); Protein, Total 8.1 g/dL (6.0-8.3); Sodium 135 mmol/L (136-145)
[2021-08-19] MEDS ORDERED: Ondansetron ODT 4 MG TAB PO PRN (14:09)
[2021-08-19] MEDS: Heparin 5,000 UNITS/ML VIAL SC SCH ×2 (15:07→21:23)
[2021-08-19] MEDS ORDERED: Vancomycin Sliding Scale 1 EACH FS PRN (15:20)
[2021-08-19] MEDS ORDERED: Vancomycin HCl 750 MG in Sodium Chloride 0.9% 250 ML 250 ML IVPB SCH (15:30)
[2021-08-19] MEDS ORDERED: Vancomycin 1 GM in Premix Bag 1 BAG IVPB SCH (15:30)
[2021-08-19] MEDS ORDERED: Vancomycin HCl 1.5 GM in Sodium Chloride 0.9% 250 ML 300 ML IVPB SCH (15:30)
[2021-08-19] MEDS ORDERED: Vancomycin HCl 1.25 GM in Sodium Chloride 0.9% 250 ML 250 ML IVPB SCH (15:30)
[2021-08-19] MEDS ORDERED: HOLD VANCOMYCIN FOR LEVEL >20 FS SCH (15:30)
[2021-08-19] MEDS ORDERED: VANCOMYCIN 2 GRAM/400 ML BAG 2 GM in Premix Bag 1 BAG IVPB SCH ×2 (15:30→22:00)
[2021-08-19] MEDS ORDERED: cefTRIAXone\\ROCEPHIN 2 GM in Sodium Chloride 0.9% 100 ML IVPB SCH ×2 (16:00→21:00)
[2021-08-19] MEDS ORDERED: Clindamycin/D5W 600 MG in Premix Bag 1 BAG IVPB SCH (18:00)
[2021-08-19] MEDS: hydrOXYzine 25 MG TAB PO SCH (20:52)
[2021-08-19] MEDS ORDERED: diphenhydrAMINE 25 MG CAP PO SCH (21:00)
[2021-08-19] MEDS ORDERED: Gabapentin 100 MG CAP PO SCH (21:00)
[2021-08-19] MEDS: Melatonin 3 MG TAB PO SCH (21:16)
[2021-08-19] MEDS: Docusate Sodium 100 MG/10 ML UDCUP PO SCH (21:21)
[2021-08-19] MEDS: Nystatin Powder 15 GM BOT TOP SCH (21:23)
[2021-08-19] MEDS: busPIRone HCl 10 MG TAB PO SCH (21:25)
[2021-08-19] MEDS: Nicotine 7 MG PATCH TD SCH (22:15)
[2021-08-19 23:51] VITALS: BMI 56.4
[2021-08-20] MEDS: hydrOXYzine 25 MG TAB PO SCH ×3 (00:32→14:21)
[2021-08-20] MEDS ORDERED: Heparin 10,000 UNITS/ 10 ML VIAL ONE (08:58)
[2021-08-20] MEDS ORDERED: Thiamine 100 MG TAB PO SCH (09:00)
[2021-08-20] MEDS: Heparin 5,000 UNITS/ML VIAL SC SCH ×2 (09:01→14:33)
[2021-08-20] MEDS: Docusate Sodium 100 MG/10 ML UDCUP PO SCH (09:01)
[2021-08-20] MEDS: busPIRone HCl 10 MG TAB PO SCH (09:02)
[2021-08-20] MEDS: Nystatin Powder 15 GM BOT TOP SCH (09:08)
[2021-08-20 11:00] LABS: #Eosinphils 0.1 thou/uL (0.0-0.7); #Lymphocytes 1.8 thou/uL (1.20-3.40); #Monocytes 0.7 thou/uL (0.11-0.59); #Neutrophils 2.4 thou/uL (1.40-6.50); %Basophils 0.5 % (0.0-1.0); %Eosinophils 2.5 % (0.0-10.0); %Lymphocytes 35.2 % (21.0-51.0); %Monocytes 13.3 % (0.0-10.0); %Neutrophils 48.5 % (42.0-75.0); Hemoglobin 8.8 g/dL (14.0-18.0); Mean Corpuscular HGB CONC 31.7 g/dL (32.0-36.0); Mean Corpuscular Hemoglobin 31.8 pg (27.0-31.0); Mean Platelet Volume 8.8 fL (7.4-10.4); Platelet Count 58 thou/uL (130-400); RBC Distribution Width 12.9 % (11.5-14.5); Red Blood Cell (RBC) Count 2.75 mill/uL (4.70-6.10)
[2021-08-20 11:15] LABS: Vancomycin, Random 23.1 ug/mL (See Comment)
[2021-08-20 11:39] LABS: HBSAB Concentration Less than 8.00 mIU/mL; HBSAg Index 0.28 S/CO (0-0.99); Hep B Core Total Ab Non-Reactive (NonReactive); Hep B Core Total Index 0.15 S/CO (0-0.79); Hep B Surf AB Non-Reactive (NonReactive); Hep B Surf Ag Non-Reactive S/CO (NonReactive); Hep C IgG Ab Non-Reactive (NonReactive); Hep C Index 0.18 S/CO (0-0.79)
[2021-08-20 11:49] LABS: Anion Gap 12 mmol/L (10-20); BUN (Urea Nitrogen) 21 mg/dL (8.9-20.6); Calc. Creatinine Clearance 92 mL/min (70-130); Calcium 8.6 mg/dL (7.8-10.44); Carbon Dioxide 27 mmol/L (22-29); Chloride 97 mmol/L (98-107); Glucose 92 mg/dL (70-105); Potassium 3.5 mmol/L (3.5-5.1); Sodium 132 mmol/L (136-145)
[2021-08-20 12:19] LABS: SARS-CoV-2 PCR by NAA Not Detected (NotDetected)
[2021-08-20 16:21] VITALS: BP 112/56; TEMP 98.1
[2021-08-20] MEDS: Melatonin 3 MG TAB PO SCH (16:33)
[2021-08-20] MEDS: Nicotine 7 MG PATCH TD SCH (16:34)
[2021-08-20] MEDS ORDERED: cefTRIAXone\\ROCEPHIN 2 GM in Sodium Chloride 0.9% 100 ML IVPB SCH ×2 (17:00→21:00)
== END 2021-08-20 18:06 | disposition home or self-care (01) | DRG 606 ==
LOC: ERS 11:06 → ERHOLD 14:09 → MSONC 15:57
PROVIDERS: ADMIT Family Medicine; ATTEND Family Medicine
PROC: 5A1D70Z Performance of Urinary Filtration, Intermittent, Less than 6 Hours Per Day (ICD-10-PCS; principal; 2021-08-19)
DX: M79.3 Panniculitis, unspecified (principal); N18.6 End stage renal disease; Z20.822 Contact with and (suspected) exposure to COVID-19; D61.818 Other pancytopenia; N17.9 Acute kidney failure, unspecified; F10.20 Alcohol dependence, uncomplicated; E87.70 Fluid overload, unspecified; D63.1 Anemia in chronic kidney disease; E66.01 Morbid (severe) obesity due to excess calories; F41.1 Generalized anxiety disorder; F32.A Depression, unspecified; F12.10 Cannabis abuse, uncomplicated; Z68.43 Body mass index [BMI] 50.0-59.9, adult; Z79.899 Other long term (current) drug therapy; Z99.2 Dependence on renal dialysis
CPT/HCPCS: 36415; 80048; 80053; 80202; 84145; 85025; 86704; 86706; 86803; 87340; 99284; J0696; J1644; J3490; U0003; U0005

== ENCOUNTER 2021-08-29 09:22 | Emergency (ER) | payer MEDICARE, MEDICAID ==
[2021-08-29 10:18] LABS: Hemoglobin 10.6 g/dL (14.0-18.0); Mean Corpuscular HGB CONC 33.3 g/dL (32.0-36.0); Mean Corpuscular Hemoglobin 32.7 pg (27.0-31.0); Platelet Count 115 thou/uL (130-400); RBC Distribution Width 13.5 % (11.5-14.5); Red Blood Cell (RBC) Count 3.26 mill/uL (4.70-6.10); White Blood Cell (WBC) Count 6.3 thou/uL (4.8-10.8)
[2021-08-29 10:31] LABS: ALT (SGPT) 26 U/L (8-55); AST (SGOT) 60 U/L (5-34); Albumin 3.1 g/dL (3.5-5.0); Alkaline Phosphatase 136 U/L (40-110); Anion Gap 14 mmol/L (10-20); BUN (Urea Nitrogen) 45 mg/dL (8.9-20.6); Bilirubin, Total 3.2 mg/dL (0.2-1.2); Calc. Creatinine Clearance 0 mL/min (70-130); Calcium 8.9 mg/dL (7.8-10.44); Carbon Dioxide 25 mmol/L (22-29); Chloride 96 mmol/L (98-107); Globulin 4.8 g/dL (2.4-3.5); Glucose 88 mg/dL (70-105); Potassium 3.3 mmol/L (3.5-5.1); Protein, Total 7.9 g/dL (6.0-8.3); Sodium 132 mmol/L (136-145)
[2021-08-29 10:38] LABS: #Eosinphils 0.2 thou/uL (0.0-0.7); #Lymphocytes 1.3 thou/uL (1.20-3.40); #Monocytes 0.5 thou/uL (0.11-0.59); #Neutrophils 4.3 thou/uL (1.40-6.50); %Basophils 0.4 % (0.0-1.0); %Eosinophils 2.9 % (0.0-10.0); %Lymphocytes 20.5 % (21.0-51.0); %Monocytes 8.5 % (0.0-10.0); %Neutrophils 67.7 % (42.0-75.0); Platelet Morphology Comment Appears Decreased
[2021-08-29] MEDS ORDERED: Ondansetron ODT 4 MG TAB ONE (10:46)
== END 2021-08-29 11:12 | disposition home or self-care (01) ==
LOC: ERS 09:22
DX: N18.9 Chronic kidney disease, unspecified (principal); Z86.39 Personal history of other endocrine, nutritional and metabolic disease
CPT/HCPCS: 80053; 85025; 93005; Q0162

== ENCOUNTER 2021-09-12 04:42 | Emergency (ER) | payer MEDICARE, MEDICAID ==
[2021-09-12 05:14] LABS: #Basophils 0.1 thou/uL (0.0-0.2); #Eosinphils 0.2 thou/uL (0.0-0.7); #Lymphocytes 1.7 thou/uL (1.20-3.40); #Monocytes 0.6 thou/uL (0.11-0.59); #Neutrophils 3.7 thou/uL (1.40-6.50); %Basophils 0.8 % (0.0-1.0); %Eosinophils 3.2 % (0.0-10.0); %Lymphocytes 27.5 % (21.0-51.0); %Neutrophils 58.5 % (42.0-75.0); Hemoglobin 12.2 g/dL (14.0-18.0); Mean Corpuscular HGB CONC 33.7 g/dL (32.0-36.0); Mean Corpuscular Hemoglobin 32.2 pg (27.0-31.0); Mean Corpuscular Volume 95.6 fL (78.0-98.0); Mean Platelet Volume 9.2 fL (7.4-10.4); Platelet Count 65 thou/uL (130-400); RBC Distribution Width 13.2 % (11.5-14.5); White Blood Cell (WBC) Count 6.3 thou/uL (4.8-10.8)
[2021-09-12] MEDS ORDERED: Ondansetron ODT 4 MG TAB ONE (05:15)
[2021-09-12] MEDS ORDERED: Ondansetron PF 4 MG/2 ML Vial ONE (05:15)
[2021-09-12 05:33] LABS: ALT (SGPT) 17 U/L (8-55); AST (SGOT) 47 U/L (5-34); Albumin 2.8 g/dL (3.5-5.0); Alkaline Phosphatase 123 U/L (40-110); Anion Gap 14 mmol/L (10-20); BUN (Urea Nitrogen) 15 mg/dL (8.9-20.6); Bilirubin, Total 2.7 mg/dL (0.2-1.2); Calc. Creatinine Clearance 0 mL/min (70-130); Calcium 8.8 mg/dL (7.8-10.44); Carbon Dioxide 23 mmol/L (22-29); Chloride 97 mmol/L (98-107); Globulin 4.8 g/dL (2.4-3.5); Glucose 94 mg/dL (70-105); Potassium 3.2 mmol/L (3.5-5.1); Protein, Total 7.6 g/dL (6.0-8.3); Sodium 131 mmol/L (136-145)
== END 2021-09-12 06:34 | disposition home or self-care (01) ==
LOC: ERS 04:42
DX: R11.2 Nausea with vomiting, unspecified (principal); E66.9 Obesity, unspecified
CPT/HCPCS: 36415; 71045; 80053; 84484; 85025; 93005; J2405; Q0162

== ENCOUNTER 2021-09-23 17:45 | Emergency (ER) | payer MEDICARE, MEDICAID ==
[2021-09-23 18:51] LABS: #Eosinphils 0.2 thou/uL (0.0-0.7); #Lymphocytes 1.9 thou/uL (1.20-3.40); #Monocytes 0.6 thou/uL (0.11-0.59); %Basophils 0.3 % (0.0-1.0); %Monocytes 10.9 % (0.0-10.0); %Neutrophils 52.9 % (42.0-75.0); Hemoglobin 11.4 g/dL (14.0-18.0); Mean Corpuscular HGB CONC 33.6 g/dL (32.0-36.0); Mean Corpuscular Hemoglobin 31.9 pg (27.0-31.0); Mean Corpuscular Volume 95.1 fL (78.0-98.0); Mean Platelet Volume 8.3 fL (7.4-10.4); Platelet Count 94 thou/uL (130-400); RBC Distribution Width 13.9 % (11.5-14.5); Red Blood Cell (RBC) Count 3.57 mill/uL (4.70-6.10); White Blood Cell (WBC) Count 5.7 thou/uL (4.8-10.8)
[2021-09-23 19:16] LABS: ALT (SGPT) 16 U/L (8-55); AST (SGOT) 36 U/L (5-34); Albumin 2.7 g/dL (3.5-5.0); Alkaline Phosphatase 115 U/L (40-110); Anion Gap 10 mmol/L (10-20); BUN (Urea Nitrogen) 16 mg/dL (8.9-20.6); Calc. Creatinine Clearance 0 mL/min (70-130); Calcium 8.9 mg/dL (7.8-10.44); Carbon Dioxide 30 mmol/L (22-29); Chloride 96 mmol/L (98-107); Globulin 4.2 g/dL (2.4-3.5); Glucose 84 mg/dL (70-105); Lipase 14 U/L (8-78); Potassium 3.2 mmol/L (3.5-5.1); Protein, Total 6.9 g/dL (6.0-8.3); Sodium 133 mmol/L (136-145)
[2021-09-23] MEDS ORDERED: Ondansetron ODT 8 MG TAB ONE (20:15)
[2021-09-23] MEDS ORDERED: Ondansetron ODT 4 MG TAB ONE (20:17)
== END 2021-09-23 21:24 | disposition home or self-care (01) ==
LOC: ERS 17:45
DX: N18.9 Chronic kidney disease, unspecified (principal); R11.2 Nausea with vomiting, unspecified; E66.9 Obesity, unspecified; Z79.899 Other long term (current) drug therapy
CPT/HCPCS: 36415; 71045; 80053; 83690; 84484; 85025; 93005; Q0162

== ENCOUNTER 2021-10-02 23:29 | Emergency (ER) | payer MEDICARE, MEDICAID | END 2021-10-02 23:59 | disposition left against medical advice (07) | LOC: ERS 23:29 | DX: Z53.21 Procedure and treatment not carried out due to patient leaving prior to being seen by health care provider (principal) ==

== ENCOUNTER 2021-10-03 08:14 | Emergency (ER) | payer MEDICARE, MEDICAID | END 2021-10-03 09:58 | disposition left against medical advice (07) | LOC: ERS 08:14 | DX: Z53.21 Procedure and treatment not carried out due to patient leaving prior to being seen by health care provider (principal) ==

== ENCOUNTER 2021-10-17 13:49 | Emergency (ER) | payer MEDICARE, MEDICAID ==
[2021-10-17] MEDS ORDERED: Lorazepam 2 MG/ML VIAL ONE (14:24)
[2021-10-17 14:35] LABS: #Lymphocytes 0.7 thou/uL (1.20-3.40); #Monocytes 0.4 thou/uL (0.11-0.59); #Neutrophils 5.3 thou/uL (1.40-6.50); %Basophils 0.3 % (0.0-1.0); %Eosinophils 0.2 % (0.0-10.0); %Lymphocytes 10.9 % (21.0-51.0); %Monocytes 6.3 % (0.0-10.0); %Neutrophils 82.3 % (42.0-75.0); Hemoglobin 10.3 g/dL (14.0-18.0); Mean Corpuscular Hemoglobin 29.8 pg (27.0-31.0); Mean Corpuscular Volume 93.1 fL (78.0-98.0); Mean Platelet Volume 8.9 fL (7.4-10.4); Platelet Count 83 thou/uL (130-400); RBC Distribution Width 15.8 % (11.5-14.5); Red Blood Cell (RBC) Count 3.47 mill/uL (4.70-6.10); White Blood Cell (WBC) Count 6.4 thou/uL (4.8-10.8)
[2021-10-17 14:50] LABS: Acetaminophen Less than 6.0 mcg/mL (10.0-30.0); Alcohol Less than 10 mg/dL (Less than 10); Salicylate Less than 8.0 mg/dL (15.0-30.0)
[2021-10-17 14:52] LABS: ALT (SGPT) 25 U/L (8-55); AST (SGOT) 58 U/L (5-34); Albumin 2.6 g/dL (3.5-5.0); Alkaline Phosphatase 110 U/L (40-110); Anion Gap 16 mmol/L (10-20); BUN (Urea Nitrogen) 12 mg/dL (8.9-20.6); Bilirubin, Total 3.4 mg/dL (0.2-1.2); Calc. Creatinine Clearance 0 mL/min (70-130); Calcium 7.2 mg/dL (7.8-10.44); Carbon Dioxide 24 mmol/L (22-29); Chloride 97 mmol/L (98-107); Globulin 4.9 g/dL (2.4-3.5); Glucose 117 mg/dL (70-105); Protein, Total 7.5 g/dL (6.0-8.3); Sodium 134 mmol/L (136-145)
[2021-10-17 15:19] LABS: Amphetamine Not Detected (NotDetected); Barbiturates Screen Not Detected (NotDetected); Benzodiazepine Screen Not Detected (NotDetected); Cocaine Metabolite Screen Not Detected (NotDetected); Methadone Not Detected (NotDetected); Methamphetamine Not Detected (NotDetected); Opiate Screen Not Detected (NotDetected); Oxycodone Screen Not Detected (NotDetected); Phencyclidine (PCP) Not Detected (NotDetected); THC/Cannabinoid Screen Detected (NotDetected); Tricyclic Screen Not Detected (NotDetected)
[2021-10-17] MEDS ORDERED: Potassium Chloride 20 MEQ TAB ONE (16:09)
[2021-10-17] MEDS ORDERED: Potassium Chloride 20 MEQ TAB PO SCH (17:30)
[2021-10-17] MEDS ORDERED: Magnesium Oxide 400 MG TAB PO SCH (17:30)
[2021-10-17] MEDS ORDERED: Diazepam 5 MG TAB ONE (17:59)
[2021-10-17] MEDS ORDERED: traZODone HCl 50 MG TAB ONE (21:54)
[2021-10-18] MEDS ORDERED: Ondansetron ODT 4 MG TAB ONE (00:24)
[2021-10-18] MEDS ORDERED: Diazepam 5 MG TAB ONE (03:16)
[2021-10-18 07:51] LABS: SARS-CoV-2 NAA Rapid Test Not Detected (NotDetected)
[2021-10-18] MEDS ORDERED: hydrALAZINE 25 MG TAB ONE (11:40)
[2021-10-18] MEDS ORDERED: hydrOXYzine Pamoate 25 mg Capsule ONE ×2 (11:41→17:39)
== END 2021-10-18 19:29 | disposition home or self-care (01) ==
LOC: ERS 13:49
DX: F41.9 Anxiety disorder, unspecified (principal); Z20.822 Contact with and (suspected) exposure to COVID-19; I12.0 Hypertensive chronic kidney disease with stage 5 chronic kidney disease or end stage renal disease; N18.6 End stage renal disease; F17.210 Nicotine dependence, cigarettes, uncomplicated; Z79.899 Other long term (current) drug therapy
CPT/HCPCS: 80306; 80307; 83735; 93005; U0002; 36415; 84443; 96374; 96376; J2060; Q0162; Q0177

== ENCOUNTER 2021-11-20 09:11 | Inpatient (IN) | payer OTHER, MEDICAID ==
[2021-11-20 10:22] LABS: Hemoglobin 10.5 g/dL (14.0-18.0); Mean Corpuscular HGB CONC 32.6 g/dL (32.0-36.0); Mean Corpuscular Hemoglobin 35.2 pg (27.0-31.0); Mean Platelet Volume 8.1 fL (7.4-10.4); Platelet Count 78 thou/uL (130-400); RBC Distribution Width 21.1 % (11.5-14.5); Red Blood Cell (RBC) Count 2.98 mill/uL (4.70-6.10); White Blood Cell (WBC) Count 9.9 thou/uL (4.8-10.8)
[2021-11-20 10:24] LABS: #Lymphocytes 0.9 thou/uL (1.20-3.40); #Monocytes 0.8 thou/uL (0.11-0.59); #Neutrophils 8.1 thou/uL (1.40-6.50); %Basophils 0.3 % (0.0-1.0); %Eosinophils 0.3 % (0.0-10.0); %Lymphocytes 9.2 % (21.0-51.0); %Monocytes 8.2 % (0.0-10.0); MDiff Complete? YES; Macrocytosis SLIGHT = 6-15 cells (100X) (0-5/hpf); Platelet Morphology Comment Appears Decreased
[2021-11-20 10:26] LABS: ALT (SGPT) 77 U/L (8-55); AST (SGOT) 217 U/L (5-34); Albumin 2.5 g/dL (3.5-5.0); Alkaline Phosphatase 128 U/L (40-110); Anion Gap 15 mmol/L (10-20); BUN (Urea Nitrogen) 11 mg/dL (8.9-20.6); Calc. Creatinine Clearance 0 mL/min (70-130); Calcium 7.1 mg/dL (7.8-10.44); Carbon Dioxide 29 mmol/L (22-29); Chloride 88 mmol/L (98-107); Globulin 4.8 g/dL (2.4-3.5); Glucose 90 mg/dL (70-105); Lipase 15 U/L (8-78); Protein, Total 7.3 g/dL (6.0-8.3); Sodium 129 mmol/L (136-145)
[2021-11-20] MEDS ORDERED: Ondansetron PF 4 MG/2 ML Vial ONE (10:29)
[2021-11-20 10:36] LABS: Potassium 2.5 mmol/L (3.5-5.1)
[2021-11-20 12:07] LABS: Acetaminophen Less than 6.0 mcg/mL (10.0-30.0); Alcohol Less than 10 mg/dL (Less than 10); Salicylate Less than 8.0 mg/dL (15.0-30.0)
[2021-11-20] MEDS ORDERED: NS 0.9% w/ 20 MEQ KCL 1,000 ML ONE (12:10)
[2021-11-20] MEDS ORDERED: Acetaminophen 325 MG TAB PO PRN (14:00)
[2021-11-20] MEDS ORDERED: Ondansetron ODT 4 MG TAB SL PRN (14:00)
[2021-11-20] MEDS ORDERED: Ondansetron PF 4 MG/2 ML Vial IVP PRN (14:00)
[2021-11-20] MEDS ORDERED: Sodium Chloride 0.9% 1,000 ML IV SCH (14:00)
[2021-11-20 14:22] VITALS: BMI 55.4
[2021-11-20] MEDS ORDERED: Promethazine HCl 25 MG in Sodium Chloride 0.9% 50 ML IVPB PRN (14:40)
[2021-11-20] MEDS ORDERED: Calcium Carbonate 500 MG ChewTAB PO PRN (16:22)
[2021-11-20] MEDS ORDERED: Melatonin 3 MG TAB PO SCH (17:00)
[2021-11-20] MEDS: Potassium Chloride 20 MEQ in Premix Bag 1 BAG IVPB SCH ×3 (17:13→20:31)
[2021-11-20] MEDS: Lactated Ringer's 1,000 ML IV SCH (17:13)
[2021-11-20 17:26] LABS: INR-International Normal Ratio 2.1; Prothrombin Time 24.3 sec (12.0-14.7)
[2021-11-20 17:34] LABS: Phosphorus 2.5 mg/dL (2.3-4.7)
[2021-11-20 17:38] LABS: Potassium 2.6 mmol/L (3.5-5.1)
[2021-11-20 17:39] LABS: Gamma GT (GGT) 134 U/L (12-64); Magnesium 1.2 mg/dL (1.6-2.6)
[2021-11-20 17:58] LABS: HBCM Index 0.55 S/CO (0-0.79); HBSAg Index 0.28 S/CO (0-0.99); HIV (1/2) Antibody/Antigen Non-Reactive (NonReactive); HIV 1/2 INDEX 0.09 S/CO (<1.00); Hep B Surf Ag Non-Reactive S/CO (NonReactive); Hep C IgG Ab Non-Reactive (NonReactive); Hep C Index 0.35 S/CO (0-0.79); Hepatitis B Core IgM Abs Non-Reactive (NonReactive)
[2021-11-20 18:33] LABS: Syphilis Antibody Nonreactive (Nonreactive)
[2021-11-20 19:00] LABS: Hep A IgM AB Equivocal (NonReactive); Hep A IgM S/CO 0.98 S/CO (0-0.79)
[2021-11-20] MEDS ORDERED: Potassium Phosphate 30 MMOL in Sodium Chloride 0.9% 250 ML 250 ML IVPB SCH (20:00)
[2021-11-20] MEDS ORDERED: Magnesium Sulfate 4 GM in Sodium Chloride 0.9% 250 ML 250 ML IVPB SCH (20:00)
[2021-11-20] MEDS ORDERED: Magnesium Sulfate In Water 4 GM in Premix Bag 1 BAG IVPB SCH (20:00)
[2021-11-20] MEDS: Penicillin V Potassium 250 MG TAB PO SCH (20:32)
[2021-11-20] MEDS ORDERED: Penicillin V Potassium 250 MG TAB PO SCH (21:00)
[2021-11-20] MEDS ORDERED: busPIRone HCl 10 MG TAB PO SCH (21:00)
[2021-11-20] MEDS: Ondansetron ODT 4 MG TAB PO PRN (21:29)
[2021-11-21 00:09] LABS: SARS-CoV-2 PCR by NAA Not Detected (NotDetected)
[2021-11-21] MEDS ORDERED: busPIRone HCl 10 MG TAB PO SCH (00:30)
[2021-11-21] MEDS: Lactated Ringer's 1,000 ML IV SCH ×2 (00:38→14:11)
[2021-11-21] MEDS: Ondansetron ODT 4 MG TAB PO PRN ×4 (04:35→22:12)
[2021-11-21 05:05] LABS: #Eosinphils 0.2 thou/uL (0.0-0.7); #Lymphocytes 1.6 thou/uL (1.20-3.40); #Monocytes 1.2 thou/uL (0.11-0.59); #Neutrophils 6.9 thou/uL (1.40-6.50); %Basophils 0.1 % (0.0-1.0); %Eosinophils 1.8 % (0.0-10.0); %Lymphocytes 16.3 % (21.0-51.0); %Monocytes 12.4 % (0.0-10.0); %Neutrophils 69.3 % (42.0-75.0); Hemoglobin 9.5 g/dL (14.0-18.0); Mean Corpuscular HGB CONC 32.6 g/dL (32.0-36.0); Mean Corpuscular Hemoglobin 35.1 pg (27.0-31.0); Mean Platelet Volume 8.1 fL (7.4-10.4); Platelet Count 73 thou/uL (130-400); RBC Distribution Width 20.7 % (11.5-14.5); Red Blood Cell (RBC) Count 2.72 mill/uL (4.70-6.10)
[2021-11-21 05:23] LABS: ALT (SGPT) 69 U/L (8-55); AST (SGOT) 194 U/L (5-34); Albumin 2.2 g/dL (3.5-5.0); Alkaline Phosphatase 112 U/L (40-110); Anion Gap 12 mmol/L (10-20); BUN (Urea Nitrogen) 11 mg/dL (8.9-20.6); Bilirubin, Total 13.7 mg/dL (0.2-1.2); Calc. Creatinine Clearance 274 mL/min (70-130); Calcium 6.7 mg/dL (7.8-10.44); Carbon Dioxide 29 mmol/L (22-29); Chloride 91 mmol/L (98-107); Globulin 4.3 g/dL (2.4-3.5); Glucose 94 mg/dL (70-105); Protein, Total 6.5 g/dL (6.0-8.3); Sodium 129 mmol/L (136-145)
[2021-11-21 05:26] LABS: Potassium 2.8 mmol/L (3.5-5.1)
[2021-11-21] MEDS ORDERED: Potassium Chloride 20 MEQ TAB PO SCH ×2 (08:00→09:00)
[2021-11-21 08:45] LABS: Magnesium 1.6 mg/dL (1.6-2.6)
[2021-11-21 08:49] LABS: Phosphorus 3.1 mg/dL (2.3-4.7)
[2021-11-21] MEDS ORDERED: Torsemide 20 MG TAB PO SCH (09:00)
[2021-11-21] MEDS ORDERED: Enoxaparin Sodium 40 MG/0.4 ML SYRINGE SC SCH (09:00)
[2021-11-21] MEDS ORDERED: Magnesium Sulfate 4 GM in Sodium Chloride 0.9% 250 ML 250 ML IVPB SCH (09:30)
[2021-11-21] MEDS: Potassium Chloride 20 MEQ in Premix Bag 1 BAG IVPB SCH ×4 (10:49→23:51)
[2021-11-21] MEDS: Penicillin V Potassium 250 MG TAB PO SCH ×2 (10:49→20:40)
[2021-11-21] MEDS: Magnesium 2 GM/50 ML 2 GM in Premix Bag 1 BAG IVPB SCH ×2 (10:49→15:40)
[2021-11-21] MEDS: Spironolactone 100 MG TAB PO SCH (10:50)
[2021-11-21] MEDS: Thiamine 100 MG TAB PO SCH (10:50)
[2021-11-21] MEDS: busPIRone HCl 10 MG TAB PO SCH ×2 (10:50→19:06)
[2021-11-21] MEDS: Potassium Chloride 20 MEQ TAB PO SCH ×4 (10:51→20:40)
[2021-11-21] MEDS: Folic Acid/Vit B Comp W-C PO SCH (10:51)
[2021-11-21 15:29] LABS: ALT (SGPT) 84 U/L (8-55); AST (SGOT) 238 U/L (5-34); Albumin 2.5 g/dL (3.5-5.0); Alkaline Phosphatase 125 U/L (40-110); Anion Gap 16 mmol/L (10-20); BUN (Urea Nitrogen) 11 mg/dL (8.9-20.6); Bilirubin, Total 16.3 mg/dL (0.2-1.2); Calc. Creatinine Clearance 210 mL/min (70-130); Calcium 6.9 mg/dL (7.8-10.44); Carbon Dioxide 27 mmol/L (22-29); Chloride 90 mmol/L (98-107); Globulin 4.9 g/dL (2.4-3.5); Glucose 83 mg/dL (70-105); Protein, Total 7.4 g/dL (6.0-8.3); Sodium 130 mmol/L (136-145)
[2021-11-21 15:32] LABS: Potassium 2.5 mmol/L (3.5-5.1)
[2021-11-21] MEDS ORDERED: Melatonin 3 MG TAB PO SCH (21:00)
[2021-11-22 00:36] LABS: Amphetamine Not Detected (NotDetected); Barbiturates Screen Not Detected (NotDetected); Benzodiazepine Screen Not Detected (NotDetected); Cocaine Metabolite Screen Not Detected (NotDetected); Methadone Not Detected (NotDetected); Methamphetamine Not Detected (NotDetected); Opiate Screen Not Detected (NotDetected); Oxycodone Screen Not Detected (NotDetected); Phencyclidine (PCP) Not Detected (NotDetected); THC/Cannabinoid Screen Detected (NotDetected); Tricyclic Screen Not Detected (NotDetected)
[2021-11-22 00:52] LABS: Creatinine, Urine 62.5 mg/dL (63-166)
[2021-11-22 04:43] LABS: #Basophils 0.1 thou/uL (0.0-0.2); #Eosinphils 0.2 thou/uL (0.0-0.7); #Lymphocytes 1.6 thou/uL (1.20-3.40); #Monocytes 1.3 thou/uL (0.11-0.59); #Neutrophils 6.6 thou/uL (1.40-6.50); %Basophils 0.6 % (0.0-1.0); %Eosinophils 1.8 % (0.0-10.0); %Lymphocytes 16.2 % (21.0-51.0); %Monocytes 13.3 % (0.0-10.0); %Neutrophils 68.2 % (42.0-75.0); Hemoglobin 10.4 g/dL (14.0-18.0); Mean Corpuscular HGB CONC 32.5 g/dL (32.0-36.0); Mean Platelet Volume 9.1 fL (7.4-10.4); Platelet Count 75 thou/uL (130-400); RBC Distribution Width 20.8 % (11.5-14.5); White Blood Cell (WBC) Count 9.7 thou/uL (4.8-10.8)
[2021-11-22 04:57] LABS: ALT (SGPT) 78 U/L (8-55); AST (SGOT) 220 U/L (5-34); Albumin 2.1 g/dL (3.5-5.0); Alkaline Phosphatase 128 U/L (40-110); Anion Gap 15 mmol/L (10-20); BUN (Urea Nitrogen) 9 mg/dL (8.9-20.6); Bilirubin, Total 14.3 mg/dL (0.2-1.2); Calc. Creatinine Clearance 219 mL/min (70-130); Calcium 6.8 mg/dL (7.8-10.44); Carbon Dioxide 23 mmol/L (22-29); Chloride 94 mmol/L (98-107); Globulin 4.6 g/dL (2.4-3.5); Glucose 92 mg/dL (70-105); Magnesium 1.9 mg/dL (1.6-2.6); Phosphorus 2.3 mg/dL (2.3-4.7); Potassium 3.9 mmol/L (3.5-5.1); Protein, Total 6.7 g/dL (6.0-8.3); Sodium 128 mmol/L (136-145)
[2021-11-22] MEDS: busPIRone HCl 10 MG TAB PO SCH (07:58)
[2021-11-22] MEDS: Folic Acid/Vit B Comp W-C PO SCH (07:58)
[2021-11-22] MEDS: Spironolactone 100 MG TAB PO SCH (07:59)
[2021-11-22] MEDS: Thiamine 100 MG TAB PO SCH (07:59)
[2021-11-22] MEDS: Penicillin V Potassium 250 MG TAB PO SCH (07:59)
[2021-11-22] MEDS ORDERED: Potassium Chloride 20 MEQ TAB PO SCH (08:00)
[2021-11-22] MEDS ORDERED: Albumin 25% 25 GM/100 ML BOT IVPB SCH (09:00)
[2021-11-22] MEDS ORDERED: Torsemide 10 MG TAB PO SCH (09:00)
[2021-11-22 16:18] VITALS: BP 135/69; TEMP 98.2
== END 2021-11-22 17:45 | disposition home or self-care (01) | DRG 432 ==
LOC: ERS 09:11 → 2NO 12:17
PROVIDERS: ADMIT Student in an Organized Health Care Education/Training Program; ATTEND Student in an Organized Health Care Education/Training Program
DX: K70.31 Alcoholic cirrhosis of liver with ascites (principal); N18.6 End stage renal disease; K76.7 Hepatorenal syndrome; G83.4 Cauda equina syndrome; N17.9 Acute kidney failure, unspecified; E22.2 Syndrome of inappropriate secretion of antidiuretic hormone; Z68.43 Body mass index [BMI] 50.0-59.9, adult; Z20.822 Contact with and (suspected) exposure to COVID-19; I45.81 Long QT syndrome; K70.11 Alcoholic hepatitis with ascites; F12.10 Cannabis abuse, uncomplicated; E87.6 Hypokalemia; F32.9 Major depressive disorder, single episode, unspecified; F41.1 Generalized anxiety disorder; E83.42 Hypomagnesemia; E83.51 Hypocalcemia; M79.3 Panniculitis, unspecified; G89.29 Other chronic pain; M54.9 Dorsalgia, unspecified; D63.1 Anemia in chronic kidney disease; E66.01 Morbid (severe) obesity due to excess calories; Z79.899 Other long term (current) drug therapy; Z99.2 Dependence on renal dialysis; Z91.15 Patient's noncompliance with renal dialysis
CPT/HCPCS: 36415; 71045; 76705; 80053; 80074; 80306; 80307; 82306; 82570; 82977; 83690; 83735; 83930; 83935; 84100; 84300; 84484; 84540; 85025; 85610; 86709; 86780; 87389; 93005; 96365; 96375; J2405; J3475; J3480; J7050; J7120; P9047; Q0162; U0003; U0005